=== PATIENT | male | born 1975 | race Caucasian/White ===

== ENCOUNTER → 2020-01-29 | Emergency (ER) | payer MEDICAID, OTHER ==
[~2020-01-29] VITALS: Ht 175.3 cm; Wt 127.0 kg
[~2020-01-29] MED LIST: DOCU100C8 PO; GABA300C10 PO; HYDR-4072 PO; KETOROLAC TROMETH 30 MG/ML 1ML VIAL IV ONE; MORPHINE SULFATE 4 MG/ML SYR/VIAL IV ONE; NAP500T PO; ONDANSETRON HCL 4 MG/2 ML VIAL IV ONE; OXYC325T14 PO; SODIUM CHLORIDE 0.9% 1,000 ML IV ONE; TAM04C PO
[2020-01-29 19:21] LABS: Urine Bacteria NONE SEEN /hpf (None Seen); Urine Blood 3+ /uL (Negative); Urine WBC 1 /hpf (0 - 3)
[2020-01-29 19:22] LABS: Basophils # (auto) 0.1 10 ^3/uL (0-0.2); Basophils % (auto) 0.8 % (0.0-2.0); Eosinophils # (auto) 0.2 10 ^3/uL (0-0.8); Eosinophils % (auto) 2.3 % (0.0-7.0); Hemoglobin 15.8 g/dL (13.5-17.5); Lymphocytes # (auto) 1.8 10 ^3/uL (0.4-5.4); Lymphocytes % (auto) 19.5 % (10.0-50.0); Mean Corpuscular Hemoglobin 27.1 pg (28.0-32.0); Mean Corpuscular Volume 82.2 fL (80.0-100.0); Monocytes # (auto) 0.9 10 ^3/uL (0-1.3); Monocytes % (auto) 10.5 % (0.0-12.0); Neutrophils % (auto) 66.9 % (37.0-80.0); Nucleated Red Blood Cells % 0.1 %; Platelet Count (auto) 316 10^3/uL (140-450); Red Blood Cells 5.85 10^6/uL (4.5-5.90); Red Cell Distribution Width 14.3 % (11.8-14.3)
[2020-01-29 19:36] LABS: Albumin 3.7 g/dL (3.4-5.0); BUN/Creatinine Ratio 15.5; Calcium 8.8 mg/dL (8.5-10.1); Potassium 4.1 mmol/L (3.5-5.1)
[2020-01-29 19:44] LABS: Bilirubin, Total 0.2 mg/dL (0.2-1.0); Total Protein 7.5 g/dL (6.4-8.2)
[2020-01-29 22:00] VITALS: BP 110/69
== END | disposition home or self-care (01) ==
LOC: ER 18:23
DX: N13.2 Hydronephrosis with renal and ureteral calculous obstruction (principal)
CPT/HCPCS: 36415; 74176; 80053; 81001; 85025; 96374; 96375; 99284; J1885; J2270; J2405; J7030

== ENCOUNTER 2020-01-31 09:58 | Emergency (ER) | payer MEDICAID ==
[~2020-01-31] VITALS: Ht 175.3 cm; Wt 122.0 kg
[2020-01-31 10:04] VITALS: BP 132/92
[2020-01-31 10:25] LABS: Basophils # (auto) 0.1 10 ^3/uL (0-0.2); Basophils % (auto) 1.1 % (0.0-2.0); Eosinophils # (auto) 0.2 10 ^3/uL (0-0.8); Eosinophils % (auto) 2.4 % (0.0-7.0); Hematocrit 46.3 % (41.0-53.0); Hemoglobin 15.5 g/dL (13.5-17.5); Lymphocytes # (auto) 1.6 10 ^3/uL (0.4-5.4); Mean Corpuscular Hemoglobin 27.6 pg (28.0-32.0); Mean Corpuscular Hgb Conc. 33.5 g/dL (32.0-36.0); Mean Corpuscular Volume 82.4 fL (80.0-100.0); Monocytes # (auto) 0.8 10 ^3/uL (0-1.3); Monocytes % (auto) 10.8 % (0.0-12.0); Neutrophils # (auto) 4.7 10 ^3/uL (1.6-8.6); Neutrophils % (auto) 63.7 % (37.0-80.0); Nucleated Red Blood Cells % 0.1 %; Platelet Count (auto) 280 10^3/uL (140-450); Red Blood Cells 5.62 10^6/uL (4.5-5.90); White Blood Cell 7.5 10^3/uL (4.4-10.8)
[2020-01-31] MEDS ORDERED: KETOROLAC TROMETH 30 MG/ML 1ML VIAL IV ONE (10:30)
[2020-01-31] MEDS ORDERED: SODIUM CHLORIDE 0.9% 1,000 ML IV ONE (10:30)
[2020-01-31 10:36] LABS: Urine WBC None Seen /hpf (0 - 3)
[2020-01-31 10:43] LABS: Potassium 4.3 mmol/L (3.5-5.1)
[2020-01-31 10:49] LABS: BUN/Creatinine Ratio 17.5; Calcium 8.8 mg/dL (8.5-10.1)
[2020-01-31 11:02] LABS: Urine Bacteria NONE SEEN /hpf (None Seen); Urine Blood 3+ /uL (Negative); Urine Specific Gravity 1.019 (1.001-1.035)
[2020-01-31] MEDS ORDERED: ONDANSETRON HCL 4 MG/2 ML VIAL IV ONE (11:30)
[2020-01-31] MEDS ORDERED: MORPHINE SULFATE 4 MG/ML SYR/VIAL IV ONE (11:30)
== END 2020-01-31 12:06 | disposition home or self-care (01) ==
LOC: ER 09:58
DX: N20.0 Calculus of kidney (principal)
CPT/HCPCS: 36415; 80048; 81001; 85025; 96374; 96375; 99284; J1885; J2270; J2405; J7030

== ENCOUNTER 2020-02-12 17:23 | Inpatient (IN) | payer MEDICAID ==
[~2020-02-12] VITALS: Ht 175.3 cm; Wt 123.7 kg
[2020-02-12 20:24] LABS: Urine WBC None Seen /hpf (0 - 3)
[2020-02-12 20:45] LABS: Urine Bacteria NONE SEEN /hpf (None Seen); Urine Blood 3+ /uL (Negative); Urine Mucus FEW (None Seen); Urine Specific Gravity 1.029 (1.001-1.035)
[2020-02-12] MEDS ORDERED: ONDANSETRON HCL 4 MG/2 ML VIAL IV ONE (22:45)
[2020-02-12] MEDS ORDERED: SODIUM CHLORIDE 0.9% 1,000 ML IV ONE (22:45)
[2020-02-12] MEDS ORDERED: MORPHINE SULFATE 4 MG/ML SYR/VIAL IV ONE (22:45)
[2020-02-13 00:33] LABS: Basophils # (auto) 0.1 10 ^3/uL (0-0.2); Basophils % (auto) 0.7 % (0.0-2.0); Eosinophils # (auto) 0.2 10 ^3/uL (0-0.8); Eosinophils % (auto) 1.6 % (0.0-7.0); Hematocrit 48.4 % (41.0-53.0); Hemoglobin 15.8 g/dL (13.5-17.5); Lymphocytes # (auto) 2.3 10 ^3/uL (0.4-5.4); Lymphocytes % (auto) 20.9 % (10.0-50.0); Mean Corpuscular Hemoglobin 27.3 pg (28.0-32.0); Mean Corpuscular Hgb Conc. 32.7 g/dL (32.0-36.0); Mean Corpuscular Volume 83.5 fL (80.0-100.0); Monocytes % (auto) 9.2 % (0.0-12.0); Neutrophils # (auto) 7.4 10 ^3/uL (1.6-8.6); Neutrophils % (auto) 67.6 % (37.0-80.0); Nucleated Red Blood Cells % 0.1 %; Platelet Count (auto) 358 10^3/uL (140-450); Red Blood Cells 5.79 10^6/uL (4.5-5.90); Red Cell Distribution Width 14.1 % (11.8-14.3); White Blood Cell 10.9 10^3/uL (4.4-10.8)
[2020-02-13 00:48] LABS: BUN/Creatinine Ratio 15.4; Calcium 9.4 mg/dL (8.5-10.1)
[2020-02-13 00:51] LABS: Bilirubin, Total 0.7 mg/dL (0.2-1.0); Total Protein 8.1 g/dL (6.4-8.2)
[2020-02-13] MEDS ORDERED: KETOROLAC TROMETH 30 MG/ML 1ML VIAL IV ONE (01:45)
[2020-02-13] MEDS ORDERED: ONDANSETRON HCL 4 MG/2 ML VIAL IV PRN (02:45)
[2020-02-13] MEDS ORDERED: HYDROcodone-ACET 5/325MG TAB PO PRN (02:45)
[2020-02-13] MEDS ORDERED: TEMAZEPAM 15 MG CAP PO PRN (02:45)
[2020-02-13] MEDS ORDERED: SODIUM CHLORIDE 0.9% 1,000 ML IV SCH (02:45)
[2020-02-13] MEDS ORDERED: cefTRIAXone 1GM/50ML D5W 50 ML IV SCH (03:00)
[2020-02-13 03:45] VITALS: BP 113/67
--- NOTE | 2020-02-13 03:45 | NUR ---
MS admit from ER VALERIATONYA admitted to MS. Patient oriented to MELISA WILLINGHAM RN primary RN, unit, room, bed, and unit policies regarding patient care and visiting hours. Patient weighed by bedscale and encouraged to call if they need something. All questions and concerns addressed, patient verbalized understanding. Note: patient is alert and oriented x 4, follows direction. On room air with even and unlabored respirations. Patient turns independently in bed and ambulates with steady gait. Lagunas is intact and draining to gravity, no kinks noted. Bed is in lowest locked position with side rails up x2 and call light within reach. instructed patient on POC and to call for assistance PRN. Will continue to monitor Q1hr and PRN.
[2020-02-13] MEDS: MORPHINE SULFATE 4 MG/ML SYR/VIAL IV PRN ×3 (04:09→18:37)
[2020-02-13 05:59] VITALS: BP 113/67
--- NOTE | 2020-02-13 07:19 | NUR ---
Closing note patient resting in bed with even and unlabored respirations, no s/s of distress noted. Endorsed care to day shift RN.
--- NOTE | 2020-02-13 07:30 | NUR ---
Opening shift note Assumed care patient currently in bed AOx4. Patient reports no pain at this time. Patient updated on POC and to call for assistance, patient verbalized understanding. Bed in low position, locked, call light within reach. Lagunas catheter hung and secured below waistline draining clear yellow urine. Will continue care.
[2020-02-13 09:00] VITALS: BP 113/68
[2020-02-13] MEDS: SODIUM CHLORIDE 0.9% 1,000 ML IV SCH ×2 (10:45→18:30)
--- NOTE | 2020-02-13 10:50 | NUR ---
Pain Patient complaining of flank pain. Patient states pain is constant and rates 7/10. Will medicate per MD orders and continue to monitor.
[2020-02-13] MEDS: FAMOTIDINE 20 MG TAB PO SCH ×2 (10:53→20:59)
[2020-02-13] MEDS ORDERED: MANNITOL FTV 25% 12.5 GM/50 ML 50 ML IV ONE (11:45)
[2020-02-13 12:31] VITALS: BP 107/78
[2020-02-13 13:53] LABS: Alcohol, Urine < 3.0 mg/dL (0-10); Amphetamine Screen, Urine NEGATIVE (NEGATIVE); Barbiturate Scree,Urine NEGATIVE (NEGATIVE); Benzodiazephine Screen, Urine NEGATIVE (NEGATIVE); Cannabinoid Screen, Urine NEGATIVE (NEGATIVE); Cocaine Screen, Urine POSITIVE (NEGATIVE); Opiate Scree,Urine POSITIVE (NEGATIVE); Phencyclidine Screen, Urine NEGATIVE (NEGATIVE)
[2020-02-13 16:51] VITALS: BP 128/67
[2020-02-13] MEDS: TAMSULOSIN HYDROCHLORIDE 0.4 MG CAP PO SCH (18:07)
[2020-02-13] MEDS: KETOROLAC TROMETH 30 MG/ML 1ML VIAL IV PRN (20:59)
[2020-02-13 23:41] VITALS: BP 122/78
[2020-02-14] MEDS: KETOROLAC TROMETH 30 MG/ML 1ML VIAL IV PRN ×2 (03:52→14:25)
[2020-02-14] MEDS: SODIUM CHLORIDE 0.9% 1,000 ML IV SCH ×3 (03:56→22:28)
[2020-02-14 06:05] VITALS: BP 129/72
[2020-02-14 06:38] LABS: Basophils # (auto) 0 10 ^3/uL (0-0.2); Basophils % (auto) 0.8 % (0.0-2.0); Eosinophils # (auto) 0.2 10 ^3/uL (0-0.8); Eosinophils % (auto) 3.1 % (0.0-7.0); Hematocrit 42.6 % (41.0-53.0); Hemoglobin 14.4 g/dL (13.5-17.5); Lymphocytes # (auto) 1.5 10 ^3/uL (0.4-5.4); Lymphocytes % (auto) 28.3 % (10.0-50.0); Mean Corpuscular Hemoglobin 27.9 pg (28.0-32.0); Mean Corpuscular Hgb Conc. 33.7 g/dL (32.0-36.0); Mean Corpuscular Volume 82.8 fL (80.0-100.0); Monocytes # (auto) 0.6 10 ^3/uL (0-1.3); Neutrophils % (auto) 56.8 % (37.0-80.0); Platelet Count (auto) 283 10^3/uL (140-450); Red Blood Cells 5.15 10^6/uL (4.5-5.90); Red Cell Distribution Width 14.1 % (11.8-14.3); White Blood Cell 5.4 10^3/uL (4.4-10.8)
[2020-02-14 06:57] LABS: Potassium 4.1 mmol/L (3.5-5.1)
[2020-02-14 07:02] LABS: BUN/Creatinine Ratio 14.1; Calcium 8.2 mg/dL (8.5-10.1)
--- NOTE | 2020-02-14 07:30 | NUR ---
Opening Shift Note Assumed care of patient, awake and alert. No S/S of distress/SOB or pain. Instructed on POC and to call for assist PRN, will continue to monitor for changes Q1hr and PRN. Bed is locked and in lowest position. Call light within reach.
[2020-02-14 08:00] VITALS: BP 119/85
[2020-02-14 09:00] VITALS: BP 119/85
[2020-02-14] MEDS: FAMOTIDINE 20 MG TAB PO SCH ×2 (11:42→22:27)
[2020-02-14] MEDS: MORPHINE SULFATE 4 MG/ML SYR/VIAL IV PRN ×2 (11:43→20:34)
[2020-02-14 13:00] VITALS: BP 130/80
--- NOTE | 2020-02-14 14:20 | NUR ---
URINE STRAINED HARKINS BAG EMPTIED WITH URINE OUTPUT OF 1,450 ML. THE URINE WAS PUT THROUGH A STRAINED NO STONES NOTED IN THE STRAINER.WILL CONTINUE TO MONITOR FOR STONES IN URINE.
[2020-02-14 16:37] VITALS: BP 131/84
[2020-02-14] MEDS: TAMSULOSIN HYDROCHLORIDE 0.4 MG CAP PO SCH (18:16)
--- NOTE | 2020-02-14 19:30 | NUR ---
Patient discussed pending lithotripsy on 02/15/20. Patient verbalized concern about his spinal stimulator wires during the procedure if the shockwave can dislodge his wires. Will inform dayshift RN to discuss with Dr. Guerrero. Patient will be NPO at midnight.
--- NOTE | 2020-02-14 19:30 | NUR ---
Opening Shift Note Assumed care of patient, awake and alert. No S/S of distress/SOB or pain. Pt safety measures in place, bed in lowest position, side rails raised x2, call light within reach. Instructed on POC and to call for assist PRN, will continue to monitor for changes Q1hr and PRN.
[2020-02-14 22:00] VITALS: BP 134/86
--- NOTE | 2020-02-14 22:48 | NUR ---
Urine Strained Patient's griffin drained, 1675 mL. Urine clear, unmeasurable spec of sediment found in strainer. Will continue to monitor.
[2020-02-15 05:00] VITALS: BP 144/91
[2020-02-15] MEDS: SODIUM CHLORIDE 0.9% 1,000 ML IV SCH ×3 (07:36→21:56)
[2020-02-15 08:00] VITALS: BP 135/71
[2020-02-15 09:00] VITALS: BP 135/71
[2020-02-15 09:35] LABS: Partial Thromboplastin Time 27.6 sec (23.64-32.05)
[2020-02-15] MEDS: FAMOTIDINE 20 MG TAB PO SCH ×2 (10:00→21:56)
--- NOTE | 2020-02-15 10:00 | NUR ---
URINE STRAINED 1,200 ML OF URINE REMOVED FROM HARKINS BAG AND STRAINED. NO STONES OR SEDIMENTS NOTED. WILL CONTINUE TO MONITOR.
[2020-02-15] MEDS: MORPHINE SULFATE 4 MG/ML SYR/VIAL IV PRN (11:28)
[2020-02-15 13:00] VITALS: BP 125/84
--- NOTE | 2020-02-15 13:10 | NUR ---
OR PATIENT TRANSPORTED TO OR FOR PROCEDURE WITH . PATIENT TRANSPORTED IN BED WITH NO SIGNS OF DISTRESS OR PAIN.
--- NOTE | 2020-02-15 13:10 | NUR ---
URINE STRAINED 650 ML OF URINE REMOVED FROM HARKINS BAG AND STRAINED, NO SEDIMENT OR STONES NOTED. WILL CONTINUE TO MONITOR.
[2020-02-15] MEDS ORDERED: ceFAZolin 1GM/50ML 50 ML IV ONE (13:22)
[2020-02-15] MEDS ORDERED: KETAMINE HCL 10 ML ONE (14:23)
[2020-02-15] MEDS ORDERED: MIDAZOLAM HCL 1MG/1ML-2 ML VIAL ONE (14:23)
[2020-02-15] MEDS ORDERED: PROPOFOL 10 MG/ML 20 ML IV ONE (14:23)
[2020-02-15] MEDS ORDERED: fentaNYL CITRATE 100 MCG/2 ML VL ONE (14:23)
[2020-02-15] MEDS ORDERED: ONDANSETRON HCL 4 MG/2 ML VIAL ONE (14:23)
--- NOTE | 2020-02-15 16:35 | NUR ---
OR REPORT REPORT RECEIVED FROM OR NURSE LONG. DR. CABALLERO DID RIGHT ESWL WITH NO STENT PLACEMENT. MAC ANESTHESIA GIVEN TO PATIENT. PATIENT WILL BE PLACED IN REGULAR DIET. PATIENT STATES HE HAS A HEADACHE BUT WHEN HE REST IT GOES AWAY. VS BP 135/90, O2 98% ON RA, HR 70. PATIENT GIVEN 1 BAG OF LACTATED RINGERS. PATIENT IS IN BED RESTING WITH NO SIGNS OF DISTRESS.
[2020-02-15] MEDS: TAMSULOSIN HYDROCHLORIDE 0.4 MG CAP PO SCH (18:05)
[2020-02-15] MEDS: ACETAMINOPHEN 325 MG TAB PO PRN (18:30)
--- NOTE | 2020-02-15 18:46 | NUR ---
URINE STRAINED REMOVED 1,000 ML OF URINE FROM HARKINS AND STRAINED. MINIMAL AMOUNT OF SEDIMENT NOTED ON STRAINER BUT NOT ENOUGH TO COLLECT. WILL CONTINUE TO MONITOR URINE OUTPUT FOR STONES.
--- NOTE | 2020-02-15 19:46 | NUR ---
open note assumed care of pt. upon entering room pt awake, alert and oriented x4. pt on room air no distress noted or observed. pt updated on plan of care. pt has griffin in place, secured, below the waist and draining clear yellow. pt bed locked, low and 2x rails up. call light in reach, this nurse to round q1hr and prn. pt encouraged to call as needed.
[2020-02-15] MEDS: KETOROLAC TROMETH 30 MG/ML 1ML VIAL IV PRN (21:56)
[2020-02-15 22:00] VITALS: BP 128/72
--- NOTE | 2020-02-16 00:45 | NUR ---
griffin drained and strained no stones or sediment visualized.
[2020-02-16] MEDS: ACETAMINOPHEN 325 MG TAB PO PRN (02:12)
[2020-02-16 05:00] VITALS: BP 120/81
[2020-02-16] MEDS: SODIUM CHLORIDE 0.9% 1,000 ML IV SCH (05:42)
--- NOTE | 2020-02-16 06:02 | NUR ---
no sediment noted in strained griffin bag contents
--- NOTE | 2020-02-16 07:20 | NUR ---
Opening Note Assumed pt care from NOC RN. Pt is a/ox4 with no s/s of distress or SOB. Pt is currently sitting upright in bed with mild c/o flank pain, 5/. Discussed pain management with pt; pt verbalized understanding. Discussed POC with pt; pt verbalized understanding. Safety measures maintained with call light within reach, bed in lowest position and side rails up. Will continue to monitor.
[2020-02-16] MEDS: FAMOTIDINE 20 MG TAB PO SCH (08:28)
[2020-02-16] MEDS: KETOROLAC TROMETH 30 MG/ML 1ML VIAL IV PRN (08:28)
[2020-02-16 08:51] VITALS: BP 130/75
--- NOTE | 2020-02-16 10:30 | NUR ---
Griffin Catheter Removed Per 's Orders Griffin catheter was removed. Pt tolerated removal well. Mild sediment present in griffin bag after straining. Pt provided urinal. Will continue to monitor and monitor voiding needs. Addendum: 02/16/20 at 1136 by RAYMOND ADORNO RN RN Pt has since voided. Will continue to monitor.
--- NOTE | 2020-02-16 11:35 | NUR ---
Stone Passed Pt has passed stone. No adverse signs noted. Will notify .
[2020-02-16] MEDS ORDERED: TAM04C PO (11:42)
[2020-02-16 11:54] VITALS: BP 130/75
--- NOTE | 2020-02-16 12:23 | NUR ---
IV D/C'ed Iv to pt's R hand d/c'ed. Catheter was removed fully intact. Site is asymptomatic. Pressure was applied to site for 3 minutes with gauze and then wrapped in coban. Pt instructed to keep dressing on for 30 minutes; pt verbalized understanding.
--- NOTE | 2020-02-16 12:35 | NUR ---
Pt D/C'ed off Unit Pt ambulated off unit. Pt is a/ox4 with no s/s of distress or SOB. Pt provided all education material, aware of all follow up appointments, aware of prescriptions, and all questions were answered. IV was d/c'ed prior to d/c.
[2020-02-16 13:00] VITALS: BP 130/88
== END 2020-02-16 12:41 | disposition home or self-care (01) | DRG 465 ==
LOC: ER 17:23 → OVERFLOW 17:24 → WEST WING 02-13 03:24
PROVIDERS: ADMIT Nurse Practitioner; ATTEND Internal Medicine
PROC: 0T9B70Z Drainage of Bladder with Drainage Device, Via Natural or Artificial Opening (ICD-10-PCS; principal; 2020-02-13)
PROC: 0TF6XZZ Fragmentation in Right Ureter, External Approach (ICD-10-PCS; 2020-02-15)
DX: N13.2 Hydronephrosis with renal and ureteral calculous obstruction (principal); E66.01 Morbid (severe) obesity due to excess calories; G47.30 Sleep apnea, unspecified; F10.10 Alcohol abuse, uncomplicated; R33.9 Retention of urine, unspecified; N13.9 Obstructive and reflux uropathy, unspecified; Z87.442 Personal history of urinary calculi; Z68.41 Body mass index [BMI] 40.0-44.9, adult; F14.10 Cocaine abuse, uncomplicated; Y90.9 Presence of alcohol in blood, level not specified
CPT/HCPCS: 36415; 74176; 80048; 80053; 80307; 81001; 85025; 85610; 85730; 96365; 96367; 96375; G0378; J0690; J0696; J1885; J2250; J2405; J2704

== ENCOUNTER 2020-04-24 15:05 | Inpatient (IN) | payer MEDICAID ==
[~2020-04-24] VITALS: Ht 175.3 cm; Wt 127.2 kg
[~2020-04-24 15:05] MED LIST changes: -DOCU100C8 PO; -GABA300C10 PO; -HYDR-4072 PO; -KETOROLAC TROMETH 30 MG/ML 1ML VIAL IV ONE; -MORPHINE SULFATE 4 MG/ML SYR/VIAL IV ONE; -NAP500T PO; -ONDANSETRON HCL 4 MG/2 ML VIAL IV ONE; -OXYC325T14 PO; -SODIUM CHLORIDE 0.9% 1,000 ML IV ONE
[2020-04-24] MEDS ORDERED: ASPirin 81 mg TAB PO ONE ×2 (15:30→15:45)
[2020-04-24] MEDS ORDERED: MORPHINE SULF INJ 2 MG/ML SYRINGE 1ML IV ONE (15:30)
[2020-04-24] MEDS ORDERED: ONDANSETRON HCL 4 MG/2 ML VIAL IV ONE (15:30)
[2020-04-24 15:37] LABS: Basophils # (auto) 0.1 10 ^3/uL (0-0.2); Eosinophils # (auto) 0.1 10 ^3/uL (0-0.8); Eosinophils % (auto) 1.1 % (0.0-7.0); Hemoglobin 15.6 g/dL (13.5-17.5); Lymphocytes # (auto) 2.9 10 ^3/uL (0.4-5.4); Lymphocytes % (auto) 24.6 % (10.0-50.0); Mean Corpuscular Hemoglobin 27.6 pg (28.0-32.0); Mean Corpuscular Hgb Conc. 33.1 g/dL (32.0-36.0); Mean Corpuscular Volume 83.3 fL (80.0-100.0); Monocytes # (auto) 1.3 10 ^3/uL (0-1.3); Neutrophils # (auto) 7.3 10 ^3/uL (1.6-8.6); Neutrophils % (auto) 62.3 % (37.0-80.0); Nucleated Red Blood Cells % 0.1 %; Platelet Count (auto) 324 10^3/uL (140-450); Red Blood Cells 5.64 10^6/uL (4.5-5.90); Red Cell Distribution Width 14.7 % (11.8-14.3); White Blood Cell 11.7 10^3/uL (4.4-10.8)
[2020-04-24] MEDS ORDERED: SODIUM CHLORIDE 0.9% 1,000 ML IVB ONE (16:40)
[2020-04-24] MEDS ORDERED: PANTOPRAZOLE 40 MG/10 ML VIAL INJ IV ONE (16:45)
[2020-04-24 16:48] LABS: Alkaline Phosphatase 93 U/L (45-117); Anion Gap 8 (5-15); Aspartate Aminotransferase 22 U/L (15-37); BUN/Creatinine Ratio 12.6; Blood Urea Nitrogen 13 mg/dL (7-18); Carbon Dioxide 25 mmol/L (21-32); Chloride 107 mmol/L (98-107); GFR African American 102 mL/min; GFR Non-African American 84 mL/min; Glucose 93 mg/dL (74-106); Potassium 3.6 mmol/L (3.5-5.1); Sodium 140 mmol/L (136-145)
[2020-04-24 16:49] LABS: Alanine Aminotransferase 52 U/L (16-61); Albumin 3.9 g/dL (3.4-5.0); Bilirubin, Total 0.4 mg/dL (0.2-1.0); Calcium 9.1 mg/dL (8.5-10.1); Magnesium 2.2 mg/dL (1.6-2.6); Total Protein 7.8 g/dL (6.4-8.2)
[2020-04-24 17:54] LABS: INR 0.93 (0.9-1.15); Partial Thromboplastin Time 26.2 sec (23.0-31.2)
[2020-04-24] MEDS ORDERED: ONDANSETRON HCL 4 MG/2 ML VIAL IV PRN (19:45)
[2020-04-24] MEDS ORDERED: LABETALOL HCL 5 MG/ML 4ML SYRINGE IV PRN (19:45)
[2020-04-24] MEDS ORDERED: NITROGLYCERIN 0.4 MG SL TAB SL PRN (19:45)
[2020-04-24] MEDS ORDERED: ACETAMINOPHEN 500 MG TAB PO PRN (19:45)
[2020-04-24] MEDS: HYDROmorphone HCL 2 MG/ML VL IV PRN (20:32)
[2020-04-24 22:16] VITALS: BP 138/90
[2020-04-24] MEDS ORDERED: HYDR-4072 PO (22:45)
[2020-04-24] MEDS ORDERED: NAP500T PO (22:45)
[2020-04-24] MEDS ORDERED: GABA300C10 PO (22:45)
[2020-04-24] MEDS ORDERED: DOCU100C8 PO (22:45)
[2020-04-24] MEDS ORDERED: OXYC325T14 PO (22:45)
--- NOTE | 2020-04-24 23:30 | NUR ---
PT C/O CHEST PAIN 1-10 AN 8. PT MEDICATED WITH NITRO X 1 BECAUSE PT STATES HE DOESNT WANT ANYMORE NITRO.TWELVE LEAD EKG REGISTERED OTHERWISE NORMAL EKG WITH R wave progression and CONDUCTION DELAY.;HEART RATE 96. PT WANTS DILAUDID;PT DOES NOT WANT MORPHINE. PT HAS DILAUDID ALREADY ORDERED. NEXT DOSE DUE 0030.WILL CONTINUE TO MONITOR.
[2020-04-25] MEDS: HYDROmorphone HCL 2 MG/ML VL IV PRN (00:23)
[2020-04-25 05:00] VITALS: BP 128/80
[2020-04-25 06:24] LABS: Chloride 107 mmol/L (98-107); Potassium 3.9 mmol/L (3.5-5.1); Sodium 140 mmol/L (136-145)
[2020-04-25 06:28] LABS: Basophils # (auto) 0 10 ^3/uL (0-0.2); Basophils % (auto) 0.5 % (0.0-2.0); Eosinophils # (auto) 0.2 10 ^3/uL (0-0.8); Eosinophils % (auto) 2.5 % (0.0-7.0); Hematocrit 42.1 % (41.0-53.0); Hemoglobin 14.4 g/dL (13.5-17.5); Lymphocytes # (auto) 1.3 10 ^3/uL (0.4-5.4); Lymphocytes % (auto) 14.2 % (10.0-50.0); Mean Corpuscular Hemoglobin 28.3 pg (28.0-32.0); Mean Corpuscular Hgb Conc. 34.1 g/dL (32.0-36.0); Mean Corpuscular Volume 82.9 fL (80.0-100.0); Monocytes # (auto) 1.1 10 ^3/uL (0-1.3); Monocytes % (auto) 11.7 % (0.0-12.0); Neutrophils # (auto) 6.6 10 ^3/uL (1.6-8.6); Neutrophils % (auto) 71.1 % (37.0-80.0); Platelet Count (auto) 292 10^3/uL (140-450); Red Blood Cells 5.07 10^6/uL (4.5-5.90); Red Cell Distribution Width 14.7 % (11.8-14.3); White Blood Cell 9.2 10^3/uL (4.4-10.8)
[2020-04-25 06:34] LABS: Alkaline Phosphatase 84 U/L (45-117); Anion Gap 3 (5-15); BUN/Creatinine Ratio 13.6; Blood Urea Nitrogen 14 mg/dL (7-18); Carbon Dioxide 30 mmol/L (21-32); GFR African American 102 mL/min; GFR Non-African American 84 mL/min; Glucose 101 mg/dL (74-106)
[2020-04-25 06:35] LABS: Alanine Aminotransferase 39 U/L (16-61); Albumin 3.3 g/dL (3.4-5.0); Aspartate Aminotransferase 12 U/L (15-37); Bilirubin, Total 0.5 mg/dL (0.2-1.0); Calcium 8.4 mg/dL (8.5-10.1); Cholesterol 149 mg/dL (< 200); HDL Cholesterol 43 mg/dL (40-59); LDL Cholesterol 84 mg/dL (< 100); Magnesium 2.3 mg/dL (1.6-2.6); Total Protein 6.6 g/dL (6.4-8.2); Triglycerides 223 mg/dL (< 150)
--- NOTE | 2020-04-25 07:30 | NUR ---
Opening Shift Note Assumed care of patient, awake and alert. No S/S of distress/SOB or pain. Bed is low, locked with 2x side rails up. Call light within reach. Instructed on POC and to call for assist PRN, will continue to monitor for changes Q1hr and PRN.
[2020-04-25] MEDS ORDERED: ADENOSINE 107 MG in GIVE UN-DILUTED 0 ML IV STA (08:10)
[2020-04-25] MEDS ORDERED: MORPHINE SULFATE 4 MG/ML SYR/VIAL IV PRN (08:15)
[2020-04-25] MEDS: ENOXAPARIN SOD 40 MG/0.4 ML SYRINGE SC SCH (08:57)
[2020-04-25] MEDS: PANTOPRAZOLE 40 MG/10 ML VIAL INJ IV SCH (08:57)
[2020-04-25 09:02] VITALS: BP 133/93
[2020-04-25 12:05] LABS: Alcohol, Urine < 3.0 mg/dL (0-10); Amphetamine Screen, Urine NEGATIVE (NEGATIVE); Barbiturate Scree,Urine NEGATIVE (NEGATIVE); Benzodiazephine Screen, Urine NEGATIVE (NEGATIVE); Cannabinoid Screen, Urine NEGATIVE (NEGATIVE); Cocaine Screen, Urine POSITIVE (NEGATIVE); Opiate Scree,Urine NEGATIVE (NEGATIVE); Phencyclidine Screen, Urine NEGATIVE (NEGATIVE)
[2020-04-25 12:07] LABS: Urine Bacteria FEW /hpf (None Seen); Urine Blood Negative /uL (Negative); Urine Specific Gravity 1.016 (1.001-1.035); Urine WBC <1 /hpf (0 - 3)
[2020-04-25 13:04] VITALS: BP 155/79
[2020-04-25] MEDS ORDERED: HYDROcodone-ACET 5/325MG TAB PO PRN (13:15)
[2020-04-25] MEDS ORDERED: MORPHINE SULF INJ 2 MG/ML SYRINGE 1ML IV PRN (13:30)
[2020-04-25] MEDS ORDERED: DOCUSATE SOD 100 MG CAP PO PRN (13:30)
[2020-04-25] MEDS ORDERED: levoFLOXacin 750MG 150 ML IV ONE (13:30)
[2020-04-25] MEDS: HYDROcodone-ACET 5/325MG TAB PO PRN ×2 (14:52→20:56)
[2020-04-25 16:46] VITALS: BP 131/84
[2020-04-25] MEDS ORDERED: TAMSULOSIN HYDROCHLORIDE 0.4 MG CAP PO SCH (18:00)
[2020-04-25 21:57] VITALS: BP 131/86
[2020-04-25] MEDS ORDERED: ATORVASTATIN 20 MG TAB PO SCH (22:00)
[2020-04-26] MEDS: HYDROcodone-ACET 5/325MG TAB PO PRN ×2 (04:19→10:07)
[2020-04-26 05:00] VITALS: BP 110/70
--- NOTE | 2020-04-26 07:30 | NUR ---
Opening Shift Note Assumed care of patient, resting with eyes closed. Respirations are even and unlabored. No S/S of distress/SOB. Bed is low, locked with 2x side rails up. Call light within reach. Will discuss POC with patient. W ill continue to monitor for changes Q1hr and PRN.
[2020-04-26 09:00] VITALS: BP 113/78
[2020-04-26] MEDS ORDERED: levoFLOXacin 750MG 150 ML IV SCH (10:00)
[2020-04-26] MEDS: PANTOPRAZOLE 40 MG/10 ML VIAL INJ IV SCH (10:07)
[2020-04-26] MEDS: ENOXAPARIN SOD 40 MG/0.4 ML SYRINGE SC SCH (10:07)
--- NOTE | 2020-04-26 10:15 | NUR ---
Dr. Luna at bedside Discussing POC with patient. New orders received to advance diet. Orders read back to verify. Patient may be discharged if echocardiogram result is unremarkable. Will continue to monitor Q1hr and PRN.
--- NOTE | 2020-04-26 11:21 | NUR ---
Cardiology clearance Spoke with Liban Boss, she is aware of echocardiogram report. Patient cleared for discharge from cardiology standpoint.
[2020-04-26] MEDS ORDERED: LEVO750T8 PO (12:39)
[2020-04-26 13:00] VITALS: BP 115/74
== END 2020-04-26 15:33 | disposition home or self-care (01) | DRG 816 ==
LOC: ER 15:05 → TELE 15:06 → TELE-WESTW 21:55
PROVIDERS: ADMIT Family Medicine; ATTEND Internal Medicine
DX: T40.5X1A Poisoning by cocaine, accidental (unintentional), initial encounter (principal); J18.9 Pneumonia, unspecified organism; R65.10 Systemic inflammatory response syndrome (SIRS) of non-infectious origin without acute organ dysfunction; F14.10 Cocaine abuse, uncomplicated; E03.9 Hypothyroidism, unspecified; F12.929 Cannabis use, unspecified with intoxication, unspecified; M25.552 Pain in left hip; N40.0 Benign prostatic hyperplasia without lower urinary tract symptoms; E66.01 Morbid (severe) obesity due to excess calories; Z68.41 Body mass index [BMI] 40.0-44.9, adult; E78.1 Pure hyperglyceridemia; I10 Essential (primary) hypertension; Z87.442 Personal history of urinary calculi; G89.21 Chronic pain due to trauma; Z82.49 Family history of ischemic heart disease and other diseases of the circulatory system; Z68.42 Body mass index [BMI] 45.0-49.9, adult; Z71.3 Dietary counseling and surveillance
CPT/HCPCS: 36415; 71045; 71111; 71250; 80053; 80061; 80307; 80320; 81001; 83036; 83605; 83735; 83880; 84436; 84443; 84484; 85025; 85379; 85610; 85730; 87040; 93005; 93306; C9113; G0378; J0153; J1956; J2405

== ENCOUNTER 2021-04-15 13:15 | Emergency (ER) | payer MEDICAID ==
[~2021-04-15] VITALS: Ht 175.3 cm; Wt 131.5 kg
[~2021-04-15 13:15] MED LIST changes: +DOCU100C10 PO; +GABA300C10 PO; +HYDR-4072 PO; +LEVO750T8 PO; +NAP500T PO; +OXYC325T14 PO
[2021-04-15 13:43] VITALS: BP 138/97
[2021-04-15] MEDS ORDERED: ONDANSETRON ODT 4 MG TAB PO ONE (15:15)
[2021-04-15] MEDS ORDERED: HYDROcodone-ACET 10/325MG TAB PO ONE (15:15)
== END 2021-04-15 15:36 | disposition home or self-care (01) ==
LOC: ER 13:15
DX: S46.911A Strain of unspecified muscle, fascia and tendon at shoulder and upper arm level, right arm, initial encounter (principal); S39.012A Strain of muscle, fascia and tendon of lower back, initial encounter; I10 Essential (primary) hypertension; E78.5 Hyperlipidemia, unspecified; G89.29 Other chronic pain; M54.5 Low back pain; Z79.2 Long term (current) use of antibiotics; Z79.899 Other long term (current) drug therapy; X50.1XXA Overexertion from prolonged static or awkward postures, initial encounter; Y93.89 Activity, other specified; Y92.89 Other specified places as the place of occurrence of the external cause; Y99.8 Other external cause status
CPT/HCPCS: 72131; 73030; 99284; Q0162

== ENCOUNTER 2021-11-12 20:46 | Emergency (ER) | payer MEDICAID ==
[~2021-11-12] VITALS: Ht 175.3 cm; Wt 138.3 kg
[2021-11-12] MEDS ORDERED: KETOROLAC TROMETH 60MG/2ML VIAL IM ONE (21:30)
[2021-11-12 22:23] LABS: Basophils # (auto) 0.1 10 ^3/uL (0-0.2); Basophils % (auto) 0.9 % (0.0-2.0); Eosinophils # (auto) 0.2 10 ^3/uL (0-0.8); Eosinophils % (auto) 1.6 % (0.0-7.0); Hematocrit 45.3 % (41.0-53.0); Hemoglobin 15.7 g/dL (13.5-17.5); Lymphocytes # (auto) 1.5 10 ^3/uL (0.4-5.4); Lymphocytes % (auto) 16.6 % (10.0-50.0); Mean Corpuscular Hemoglobin 28.5 pg (28.0-32.0); Mean Corpuscular Hgb Conc. 34.7 g/dL (32.0-36.0); Mean Corpuscular Volume 82.1 fL (80.0-100.0); Monocytes # (auto) 0.9 10 ^3/uL (0-1.3); Monocytes % (auto) 9.2 % (0.0-12.0); Neutrophils # (auto) 6.7 10 ^3/uL (1.6-8.6); Neutrophils % (auto) 71.7 % (37.0-80.0); Red Blood Cells 5.52 10^6/uL (4.5-5.90); Red Cell Distribution Width 13.7 % (11.8-14.3); White Blood Cell 9.3 10^3/uL (4.4-10.8)
[2021-11-12 22:40] LABS: Albumin 3.5 g/dL (3.4-5.0); Calcium 8.9 mg/dL (8.5-10.1); Magnesium 2.1 mg/dL (1.6-2.6); Potassium 3.9 mmol/L (3.5-5.1)
[2021-11-12 22:44] LABS: BUN/Creatinine Ratio 8.8; Bilirubin, Total 0.3 mg/dL (0.2-1.0); Total Protein 7.6 g/dL (6.4-8.2)
[2021-11-12 23:31] VITALS: BP 137/71
== END 2021-11-12 23:37 | disposition home or self-care (01) ==
LOC: ER 20:46
DX: R07.89 Other chest pain (principal); I10 Essential (primary) hypertension; E78.5 Hyperlipidemia, unspecified; Z87.442 Personal history of urinary calculi
CPT/HCPCS: 36415; 71046; 80053; 83735; 83880; 84484; 85025; 93005; 96372; 99285; J1885

== ENCOUNTER 2022-10-05 15:26 | Emergency (ER) | payer MEDICAID ==
[~2022-10-05] VITALS: Ht 175.3 cm; Wt 150.0 kg
[2022-10-05 15:57] VITALS: BP 147/88
[2022-10-05] MEDS ORDERED: ASPirin 81 mg TAB PO ONE (16:00)
[2022-10-05 16:38] LABS: Basophils # (auto) 0.1 10 ^3/uL (0-0.2); Basophils % (auto) 1.2 % (0.0-2.0); Eosinophils # (auto) 0.3 10 ^3/uL (0-0.8); Eosinophils % (auto) 4.6 % (0.0-7.0); Hematocrit 45.6 % (41.0-53.0); Hemoglobin 15.5 g/dL (13.5-17.5); Lymphocytes # (auto) 1.9 10 ^3/uL (0.4-5.4); Lymphocytes % (auto) 28.9 % (10.0-50.0); Mean Corpuscular Hemoglobin 27.8 pg (28.0-32.0); Mean Corpuscular Volume 81.8 fL (80.0-100.0); Monocytes % (auto) 15.1 % (0.0-12.0); Neutrophils # (auto) 3.4 10 ^3/uL (1.6-8.6); Neutrophils % (auto) 50.2 % (37.0-80.0); Nucleated Red Blood Cells % 0.2 %; Red Blood Cells 5.58 10^6/uL (4.5-5.90); Red Cell Distribution Width 13.9 % (11.8-14.3); White Blood Cell 6.7 10^3/uL (4.4-10.8)
[2022-10-05 16:45] LABS: Albumin 3.8 g/dL (3.4-5.0); BUN/Creatinine Ratio 13.6; Bilirubin, Total 0.3 mg/dL (0.2-1.0); Calcium 8.6 mg/dL (8.5-10.1); Magnesium 2.2 mg/dL (1.6-2.6); Potassium 4.2 mmol/L (3.5-5.1)
[2022-10-05] MEDS ORDERED: METH4PAK PO (19:58)
[2022-10-05] MEDS ORDERED: AZIT1POW PO (19:58)
== END 2022-10-05 22:17 | disposition home or self-care (01) ==
LOC: ER 15:26
DX: J20.9 Acute bronchitis, unspecified (principal); R07.89 Other chest pain; F41.9 Anxiety disorder, unspecified; I25.10 Atherosclerotic heart disease of native coronary artery without angina pectoris; E78.5 Hyperlipidemia, unspecified; I10 Essential (primary) hypertension; Z87.442 Personal history of urinary calculi
CPT/HCPCS: 36415; 71046; 80053; 83735; 83880; 84484; 85025; 93005

== ENCOUNTER 2022-12-08 15:18 | Emergency (ER) | payer MEDICAID ==
[~2022-12-08] VITALS: Ht 175.3 cm; Wt 145.0 kg
[~2022-12-08 15:18] MED LIST changes: +AZIT1POW PO; +METH4PAK PO
[2022-12-08 15:39] LABS: Basophils # (auto) 0.1 10 ^3/uL (0-0.2); Basophils % (auto) 0.9 % (0.0-2.0); Eosinophils # (auto) 0.1 10 ^3/uL (0-0.8); Eosinophils % (auto) 1.3 % (0.0-7.0); Hematocrit 47.2 % (41.0-53.0); Hemoglobin 15.9 g/dL (13.5-17.5); Lymphocytes # (auto) 1.9 10 ^3/uL (0.4-5.4); Lymphocytes % (auto) 19.5 % (10.0-50.0); Mean Corpuscular Hemoglobin 27.4 pg (28.0-32.0); Mean Corpuscular Hgb Conc. 33.7 g/dL (32.0-36.0); Mean Corpuscular Volume 81.1 fL (80.0-100.0); Monocytes # (auto) 0.9 10 ^3/uL (0-1.3); Monocytes % (auto) 9.4 % (0.0-12.0); Neutrophils # (auto) 6.8 10 ^3/uL (1.6-8.6); Neutrophils % (auto) 68.9 % (37.0-80.0); Nucleated Red Blood Cells % 0.4 %; Red Blood Cells 5.82 10^6/uL (4.5-5.90); Red Cell Distribution Width 14.2 % (11.8-14.3); White Blood Cell 9.9 10^3/uL (4.4-10.8)
[2022-12-08 16:14] LABS: Albumin 3.7 g/dL (3.4-5.0); Calcium 9.6 mg/dL (8.5-10.1); Potassium 4.1 mmol/L (3.5-5.1)
[2022-12-08 16:19] LABS: BUN/Creatinine Ratio 14.3 (10.0-20.0); Bilirubin, Total 0.3 mg/dL (0.2-1.0); Total Protein 7.1 g/dL (6.4-8.2)
[2022-12-08 17:20] VITALS: BP 114/79
[2022-12-08 17:58] LABS: Alcohol, Urine < 3.0 mg/dL (0-10); Amphetamine Screen, Urine NEGATIVE (NEGATIVE); Barbiturate Scree,Urine NEGATIVE (NEGATIVE); Benzodiazephine Screen, Urine POSITIVE (NEGATIVE); Cannabinoid Screen, Urine POSITIVE (NEGATIVE); Cocaine Screen, Urine NEGATIVE (NEGATIVE); Opiate Scree,Urine NEGATIVE (NEGATIVE); Phencyclidine Screen, Urine NEGATIVE (NEGATIVE)
[2022-12-08 18:20] LABS: Urine Bacteria NONE SEEN /hpf (None Seen); Urine Blood Negative /uL (Negative); Urine WBC 25 /hpf (0 - 3)
== END 2022-12-08 17:25 | disposition home or self-care (01) ==
LOC: ER 15:18
DX: R07.89 Other chest pain (principal); R06.02 Shortness of breath; R05.9 Cough, unspecified; F12.10 Cannabis abuse, uncomplicated; F41.9 Anxiety disorder, unspecified; I25.10 Atherosclerotic heart disease of native coronary artery without angina pectoris; E78.5 Hyperlipidemia, unspecified; I10 Essential (primary) hypertension; I25.2 Old myocardial infarction; Z87.442 Personal history of urinary calculi
CPT/HCPCS: 36415; 71045; 80053; 80307; 81001; 84484; 85025; 93005

== ENCOUNTER 2025-01-15 16:23 | Emergency (ER) | payer MEDICAID ==
[~2025-01-15] VITALS: Ht 175.3 cm; Wt 151.5 kg
[~2025-01-15 16:23] MED LIST changes: +DOCU-265 PO; -DOCU100C10 PO; +GABA-1250 PO; -GABA300C10 PO; -TAM04C PO; +TAMS-35 PO
[2025-01-15 16:33] VITALS: TEMP 98.1
--- NOTE | 2025-01-15 16:41 | ED.PDOC ---
SOB-HPI HPI Comments HPI: Poor Historian. 49-year-old male presents to emergency depart for four week history of productive cough with shortness of breath that is progressively getting worse in the last three days. Patient has been diagnosed with pneumonia and has 3 L nasal cannula as needed home oxygen. Patient is states that the cough is worse when he lays flat. Past Medical History: Oxygen dependent, pneumonia, Past Surgical History: Past Medical history: HTN, HLD, [place], CAD, anxiety, Past Surgical history: unknown Medications: denies Allergies: denies Social History: denies ETOH, denies tobacco use, denies drug use REVIEW OF SYSTEMS: CONSTITUTIONAL: Denies acute: fever, diaphoresis, chills, HEAD: Denies acute: headache, photophobia Eyes: Denies acute: Double vision, vision loss, eye pain, eye discharge. EARS: Denies acute: tinnitus, hearing loss, ear discharge, ear pain, THROAT: Denies acute: sore throat, swelling, difficulty swallowing , pain with swallowing, change in voice. NECK: Denies acute: neck pain, neck swelling, stiff neck. HEART: Denies acute : chest pain, palpitations, LUNGS: Denies acute: wheezing, hemoptysis ABDOMEN: Denies acute: abdominal pain, Nausea, Vomiting, diarrhea, melena , hematemesis, hematochezia SKIN: Denies acute: rash, redness, lesions, itchiness. EXTREMITIES: Denies acute: calf pain, numbness, tingling, weakness, denies pain in extremity. Denies acute: Low back pain. Neuro: Denies acute: focal neurological deficit, motor or sensory focal neurological deficit, tremors, seizure like activity, confusion, dizziness, change in mental status, loss of bowel or bladder function, cauda equina like symptoms. : Denies acute: dysuria, hematuria, flank pain, increase in urinary frequency. PSYCH: Denies acute: hallucination, suicidal ideation, homicidal ideation. PHYSICAL EXAM: General: ----[id number]----acute distress, awake and alert. Head: normocephalic, atraumatic. Neck: supple, trachea is midline, no swelling. Throat: Normal phonation. Eyes:, no erythema, no purulent discharge, no proptosis, no icterus. Heart: regular tachycardic, no significant murmur appreciated. Lungs: no apparent respiratory distress, Able to speak in full sentences. No wheezing, no rhonchi, no crackles. No stridors Clear to auscultation bilaterally. Abdomen: non tender to palpation, non distended, soft, no guarding, no rebound, + bowel sounds. Morbidly obese. Neuro: Awake, Alert, oriented to name, self, situation, follows commands GCS=15. Speech is normal. Skin: no petechia, no purpura, no cyanosis, non-pale, not jaundice. Lower extremities: --no - Pitting edema no deformity, no focal swelling, no calf TTP. Makes eye contact. moves all four extremities. Face: no apparent facial droop. Ambulating in the ED independently. ED COURSE: DISCLAIMER: This medical document was created using an electronic medical record system with voice recognition software and computerized dictation system. Although this document has been carefully reviewed, there might still be some phonetic and typographical errors. Occasional wrong-word or "sound-alike" substitutions may have occurred due to the inherent limitations of voice recognition software. These areas are purely typographical due to imperfections of the software [employer] and do not reflect any compromise in the patient's medical care. Please read the chart carefully and recognize, using context, where these substitutions have occurred. Time Seen by MD: 16:36 Primary Care Provider: NONE Reviewed notes: Medications, Allergies Information Source: Patient Mode of Arrival: Ambulatory Past Medical History PAST MEDICAL HISTORY: Anxiety, CAD, High Lipids, HTN, Kidney Stones, [place] Family History Family History: No family hx of Cancer, No family hx of DM, No family hx of Heart naa Social History Smoker: Non-Smoker Alcohol: Occasionally Drugs: Marijuana Lives In: Home Was a procedure done? Was a procedure done?: No Differential Dx Differential Diagnosis: Bronchitis, URI, Other (DDx include ACS, unstable angina, anxiety, PE, pneumothroax, neoplasm, cardiac ischemia, COPD, asthma, CHF, pleural effusion, tobacco abuse, pneumonia, hypoxia, hypercapnia, anemia., infection/sepsis., pulmonary edema. Asthma, Cardiac tamponade, infection.) X-Ray, Labs, Meds, VS Vital Signs Date Time Temp Pulse Resp B/P (MAP) Pulse Ox O2 Delivery O2 Flow Rate FiO2 01/15/25 20:14 98 18 124/90 (101) 94 01/15/25 20:14 98 20 94 Room Air 01/15/25 19:13 18 96 Room Air* 0 21 01/15/25 16:54 94 01/15/25 16:33 98.1 115 18 117/86 (96) 95 98.1 01/15/25 16:33 18 95 Room Air* 0 21 Lab Test 01/15/25 18:55 01/15/25 17:54 01/15/25 17:00 01/15/25 16:50 Range/Units Lactic Acid Level 1.8 2.3 *H 0.4-2.0 mmol/L Troponin I High Sensitivity < 3 L < 3 L < 3 L </=54 ng/L Influenza Type A Antigen Negative Negative Influenza Type B Antigen Negative Negative SARS-CoV-2 Antigen (Rapid) Negative NEGATIVE White Blood Count 8.4 4.4-10.8 10^3/uL Red Blood Count 6.18 H 4.5-5.90 10^6/uL Hemoglobin 17.4 13.5-17.5 g/dL Hematocrit 50.6 41.0-53.0 % Mean Corpuscular Volume 81.9 80.0-100.0 fL Mean Corpuscular Hemoglobin 28.3 28.0-32.0 pg Mean Corpuscular Hemoglobin Concent 34.5 32.0-36.0 g/dL Red Cell Distribution Width 14.4 H 11.8-14.3 % Platelet Count 288 140-450 10^3/uL Mean Platelet Volume 7.5 6.9-10.8 fL Neutrophils (%) (Auto) 58.2 37.0-80.0 % Lymphocytes (%) (Auto) 28.0 10.0-50.0 % Monocytes (%) (Auto) 11.3 0.0-12.0 % Eosinophils (%) (Auto) 1.7 0.0-7.0 % Basophils (%) (Auto) 0.8 0.0-2.0 % Neutrophils # (Auto) 4.9 1.6-8.6 10 ^3/uL Lymphocytes # (Auto) 2.3 0.4-5.4 10 ^3/uL Monocytes # (Auto) 0.9 0-1.3 10 ^3/uL Eosinophils # (Auto) 0.1 0-0.8 10 ^3/uL Basophils # (Auto) 0.1 0-0.2 10 ^3/uL Nucleated Red Blood Cells 0.2 % Sodium Level 137 136-145 mmol/L Potassium Level 4.4 3.5-5.1 mmol/L Chloride Level 102 98-107 mmol/L Carbon Dioxide Level 24 20-31 mmol/L Anion Gap 11 5-15 Blood Urea Nitrogen 15 9-23 mg/dL Creatinine 1.11 0.700-1.30 mg/dL Glomerular Filtration Rate Calc 82 >90 mL/min BUN/Creatinine Ratio 13.5 10.0-20.0 Serum Glucose 271 H 74-106 mg/dL Calcium Level 10.1 8.7-10.4 mg/dL Magnesium Level 2.0 1.6-2.6 mg/dL Total Bilirubin 0.3 0.2-1.0 mg/dL Aspartate Amino Transferase (AST) 19 <34 U/L Alanine Aminotransferase (ALT) 47 H 7-40 U/L Alkaline Phosphatase 107 46-116 U/L B-Type Natriuretic Peptide 2.16 0-100 pg/mL Total Protein 7.4 5.7-8.2 g/dL Albumin 4.7 3.2-4.8 g/dL [place] [id number] Ph: [phone] DIAGNOSTIC IMAGING Diagnostic Imaging Report : [id number] Signed PATIENT: KENDALL SHAW ACCT: [id number] UNIT: [id number] : 1975 LOC: ER ROOM / BED: / AGE / SEX: 49 / M ADM STATUS: REG ER SERVICE [id number] ORDERING PHYSICIAN: TONYA EPSTEIN DO PROCEDURE(s): CXRP - CHEST PORTABLE REASON: sob, cough ORDER NUMBER(s): [id number], ACCESSION NUMBER(s): [id number] CHEST RADIOGRAPH Indication: sob, cough Technique: Single frontal view of the chest was obtained COMPARISON: XY CHEST PORTABLE on DOS: 12/08/22, CHEST PORTABLE on DOS: 04/25/20 FINDINGS: Lines and Tubes: None Lungs: Clear Pleura: No effusion. No pneumothorax. Cardiomediastinal contours: Unremarkable Bones: Unremarkable IMPRESSION: No acute disease. ATED BY: EZIO YO MD DICTATED DATE/TIME: 01/15/251831 SIGNED BY: EZIO YO MD SIGNED DATE/TIME: 01/15/251831 CC: Time of 1ST Reevaluation: 00:00 Reevaluation 1ST: Unchanged Patient Education/Counseling: Diagnosis, Treatment Family Education/Counseling: No Family Present Comments Patient presented with the above HPI.--cough/URI----workup was initiated. patient was found with the above mentioned diagnosis. the following medications were ordered: please refer to order lists of meds and tests obtained by myself Dr. Epstein. Patient ED course and VS have been stabilized. Patient has been reassessed in the ED and remained in a stable condition. Pertinent incidental findings were discussed with the patient and/or family. Patient/family voices understanding and is agreeable with plan. Patient has been observed in the ED adequate length of time to insure imp rovement/stability. Escalation of care considered: Consideration of escalation to observation or admission No acute findings on our workup today. Patient was DISCHARGED home in a stable condition. All the reports of any imaging studies that were ordered by myself were reviewed by myself. Departure 1 Departure Time of Disposition: 19:34 Impression: Primary Impression: Acute bronchitis Disposition: 01 HOME / SELF CARE / HOMELESS Condition: Stable Additional Instructions: Additional instructions: You MUST follow-up with your primary care/family doctor in 1 to 2 days. If you are unable to see your primary care/family doctor, please return to our emergency room for re-assessment and re-evaluation in 1 to 2 days. Return to the emergency room here in our facility or to the nearest ER [facility] if your symptoms change or worsen. CONSULTATIONS: you MUST Follow-up for consultation as soon as possible with: -pulmonology and cardiology in 1-2 days. Please call for appointment. You MUST call the consultants office yourself to make an appointment. You may need to arrange that through your insurance and/or your primary/family doctor. If you are unable to see the guidance consultant in 1 to 2 days, you must return to our emergency room (or any other ER of your choice) for re-assessment and re- evaluation. Adequate fluid hydration. Below is a copy of your radiological report for follow up: [address] [address] Ph: [phone] DIAGNOSTIC IMAGING Diagnostic Imaging Report : [id number] Signed PATIENT: KENDALL SHAW ACCT: [id number] UNIT: [id number] : 1975 LOC: ER ROOM / BED: / AGE / SEX: 49 / M ADM STATUS: REG ER SERVICE [id number] ORDERING PHYSICIAN: TONYA EPSTEIN DO PROCEDURE(s): CXRP - CHEST PORTABLE REASON: sob, cough ORDER NUMBER(s): [id number], ACCESSION NUMBER(s): [id number] CHEST RADIOGRAPH Indication: sob, cough Technique: Single frontal view of the chest was obtained COMPARISON: XY CHEST PORTABLE on DOS: 12/08/22, CHEST PORTABLE on DOS: 04/25/20 FINDINGS: Lines and Tubes: None Lungs: Clear Pleura: No effusion. No pneumothorax. Cardiomediastinal contours: Unremarkable Bones: Unremarkable IMPRESSION: No acute disease. ATED BY: EZIO YO MD DICTATED DATE/TIME: 01/15/251831 SIGNED BY: EZIO YO MD SIGNED DATE/TIME: 01/15/251831 CC: e-Prescriptions Azithromycin (Azithromycin) 500 Mg Tab 500 MG PO DAILY for 6 Days, #6 TAB Prov: TONYA EPSTEIN DO 01/15/25 Discharged With: Self Critical Care Note Critical Care Time?: No Heart Score Heart Score: Heart Score Response (Comments) Value History Slightly Suspicious 0 EKG Normal 0 Age 45-64 1 Risk Factors 1 or 2 risk factors 1 Troponin Normal limit 0 Total 2 I personally scribed for TONYA EPSTEIN DO ([email or web address]) on 01/15/25 at 19:10. Electronically submitted by Leobardo Helms ([email or web address]). I personally scribed for TONYA EPSTEIN DO ([email or web address]) on 01/15/25 at 21:41. Electronically submitted by Leobardo Helms ([email or web address]). TONYA EPSTEIN DO Jan 15, 2025 16:41
[2025-01-15 17:08] LABS: Basophils # (auto) 0.1 10 ^3/uL (0-0.2); Eosinophils # (auto) 0.1 10 ^3/uL (0-0.8); Hemoglobin 17.4 g/dL (13.5-17.5); Monocytes # (auto) 0.9 10 ^3/uL (0-1.3); Neutrophils # (auto) 4.9 10 ^3/uL (1.6-8.6)
[2025-01-15 17:10] LABS: Basophils % (auto) 0.8 % (0.0-2.0); Eosinophils % (auto) 1.7 % (0.0-7.0); Hematocrit 50.6 % (41.0-53.0); Lymphocytes # (auto) 2.3 10 ^3/uL (0.4-5.4); Mean Corpuscular Hemoglobin 28.3 pg (28.0-32.0); Mean Corpuscular Hgb Conc. 34.5 g/dL (32.0-36.0); Mean Corpuscular Volume 81.9 fL (80.0-100.0); Monocytes % (auto) 11.3 % (0.0-12.0); Neutrophils % (auto) 58.2 % (37.0-80.0); Nucleated Red Blood Cells % 0.2 %; Platelet Count (auto) 288 10^3/uL (140-450); Red Blood Cells 6.18 10^6/uL (4.5-5.90); Red Cell Distribution Width 14.4 % (11.8-14.3); White Blood Cell 8.4 10^3/uL (4.4-10.8)
[2025-01-15 17:27] LABS: Albumin 4.7 g/dL (3.2-4.8); Alkaline Phosphatase 107 U/L (46-116); Anion Gap 11 (5-15); Aspartate Aminotransferase 19 U/L (<34); BUN/Creatinine Ratio 13.5 (10.0-20.0); Blood Urea Nitrogen 15 mg/dL (9-23); Calcium 10.1 mg/dL (8.7-10.4); Carbon Dioxide 24 mmol/L (20-31); Chloride 102 mmol/L (98-107); Potassium 4.4 mmol/L (3.5-5.1); Sodium 137 mmol/L (136-145); Total Protein 7.4 g/dL (5.7-8.2)
[2025-01-15 17:28] LABS: Bilirubin, Total 0.3 mg/dL (0.2-1.0)
[2025-01-15 17:41] LABS: Alanine Aminotransferase 47 U/L (7-40); Glucose 271 mg/dL (74-106)
[2025-01-15 17:47] LABS: Rapid Influenza A Negative (Negative); Rapid Influenza B Negative (Negative)
[2025-01-15 17:47] LABS: Lactic Acid w/Reflex 2.3 mmol/L (0.4-2.0)
[2025-01-15 17:48] LABS: COVID19 ANTIGEN SOFIA FIA NEGATIVE (NEGATIVE)
--- NOTE | 2025-01-15 18:34 | DVH ---
CHEST RADIOGRAPH Indication: sob, cough Technique: Single frontal view of the chest was obtained COMPARISON: XY CHEST PORTABLE on DOS: 12/08/22, CHEST PORTABLE on DOS: 04/25/20 FINDINGS: Lines and Tubes: None Lungs: Clear Pleura: No effusion. No pneumothorax. Cardiomediastinal contours: Unremarkable Bones: Unremarkable IMPRESSION: No acute disease.
[2025-01-15] MEDS: IPRATROPIUM BROM 0.5 MG/2.5ML INH SOL NEB ONE (19:12)
[2025-01-15] MEDS: ALBUTEROL SULF 2.5 MG/0.5ML(0.5%) NEB SOLN NEB ONE (19:12)
[2025-01-15] MEDS ORDERED: AZIT500T66 PO (19:35)
[2025-01-15 20:14] VITALS: BP 124/90; PULSE 98; RESP 20; O2SAT 94
--- NOTE | 2025-01-16 06:49 | ECG ---
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
== END 2025-01-15 20:15 | disposition home or self-care (01) ==
LOC: ER 16:23
DX: J20.9 Acute bronchitis, unspecified (principal); I25.10 Atherosclerotic heart disease of native coronary artery without angina pectoris; I10 Essential (primary) hypertension; F12.90 Cannabis use, unspecified, uncomplicated; E78.5 Hyperlipidemia, unspecified; Z20.822 Contact with and (suspected) exposure to COVID-19
CPT/HCPCS: 36415; 71045; 80053; 83605; 83735; 83880; 84484; 85025; 87426; 87804; 93005; 94640

== ENCOUNTER 2025-01-25 05:07 | Emergency (ER) | payer MEDICAID ==
[~2025-01-25] VITALS: Ht 175.3 cm; Wt 154.5 kg
[~2025-01-25 05:07] MED LIST changes: +AZIT500T66 PO
--- NOTE | 2025-01-25 05:54 | ECG ---
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
--- NOTE | 2025-01-25 06:11 | ED.PDOC ---
SOB-HPI HPI Comments 49 y/o M, presents to the ED for CC of shortness of breath. Patient states, he has been experiencing shortness of breath with an associated cough, nasal congestion, and intermittent chest discomfort [id number]. Patient reports, that he uses home O2 PRN however, has no respiratory history. Patient comments, that he has been unable to at times get his O2 levels above 90%. Patient denies fever, chills, or sore-throat. No other symptoms or modifying factors present at this time. Chief Complaint: Shortness of Breath Time Seen by MD: 06:15 Primary Care Provider: UNKNOWN Reviewed notes: Nurses Notes, Medications, Allergies Information Source: Patient Mode of Arrival: Ambulatory Severity: Moderate Timing: Weeks Duration: Since onset History of: None Prehospital treatment: None Modifying Factors: Nothing Associated Signs and Symptoms: Cough, Nasal Congestion, Chest Pain Radiation: No Radiation Location: Substernal If cough with SOB: Non-Productive Past Medical History PAST MEDICAL HISTORY: Anxiety, CAD, High Lipids, HTN, Kidney Stones, [place] Family History Family History: No family hx of Cancer, No family hx of DM, No family hx of Heart naa Social History Smoker: Non-Smoker Alcohol: Occasionally Drugs: Marijuana Lives In: Home Constitutional: denies: chills, diaphoresis, fatigue, fever, malaise, sweats, weakness, others EENTM: reports: nose congestion; denies: blurred vision, double vision, ear bleeding, ear discharge, ear drainage, ear pain, ear ringing, eye pain, eye redness, hearing loss, mouth pain, mouth swelling, nasal discharge, nose ble eding, nose pain, photophobia, tearing, throat pain, throat swelling, voice changes, others Respiratory: reports: cough, shortness of breath; denies: hemoptysis, orthopnea, SOB at rest, SOB with excertion, stridor, wheezing, others Cardiovascular: reports: chest pain; denies: dizzy spells, diaphoresis, Dyspnea on exertion, edema, irregular heart beat, left arm pain, lightheadedness, palpitations, PND, syncope, others Gastrointestinal: denies: abdomen distended, abdominal pain, blood streaked bowels, constipated, diarrhea, dysphagia, difficulty swallowing, hematemesis, melena, nausea, poor appetite, poor fluid intake, rectal bleeding, rectal pain, vomiting, others Genitourinary: denies: burning, dysuria, flank pain, frequency, hematuria, incontinence, penile discharge, penile sore, pain, testicle pain, testicle swelling, urgency, others Neurological: denies: dizziness, fainting, headache, left sided numbness, left sided weakness, numbness, paresthesia, pre-existing deficit, right sided numbness, right sided weakness, seizure, speech problems, tingling, tremors, weakness, others Musculoskeletal: denies: back pain, gout, joint pain, joint swelling, muscle pain, muscle stiffness, neck pain, others Integumetry: denies: bruises, change in color, change in hair/nails, dryness, laceration, lesions, lumps, rash, wounds, others Allergic/Immunocompromised: denies: Difficulty Healing, Frequent Infections, Hives, Itching, others Hematologic/Lymphatic: denies: anemia, blood clots, easy bleeding, easy bruising, swollen glands, others Endocrine: denies: excessive hunger, excessive sweating, excessive thirst, excessive urination, flushing, intolerance to cold, intolerance to heat, unexplained weight gain, unexplained weight loss, others Psychiatric: denies: anxiety, bipolar disorder, depression, hopeless, panic disorder, schizophrenia, sleepless, suicidal, others All Other Systems: Reviewed and Negative Physical Exam General Appearance: Moderate Distress HEENT: Normal ENT Inspection, Pharynx Normal, TMs Normal Neck: Full Range of Motion, Non-Tender, Normal, Normal Inspection Respiratory: Chest Non-Tender, Lungs Clear, No Accessory Muscle Use, No Respiratory Distress, Normal Breath Sounds Cardiovascular: No Edema, No JVD, No Murmur, No Gallop, Normal Peripheral Pulses, Regular Rate/Rhythm Breast Exam: Deferred Gastrointestinal: No Organomegaly, Non Tender, No Pulsatile Mass, Normal Bowel Sounds, Soft Genitalia: Deferred Pelvic: Deferred Rectal: Deferred Extremities: No calf tenderness, Normal capillary refill, Normal inspection, Normal range of motion, Non-tender, No pedal edema Musculoskeletal : Apperance: Normal Neurologic: Alert, bank credit 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 Was a procedure done?: No Differential Dx Differential Diagnosis: Anxiety, Asthma, Bronchitis, CHF, COPD, Pneumonia, Pulmonary Embolism, Sinusitis, Pharyngitis, URI X-Ray, Labs, Meds, VS Vital Signs Date Time Temp Pulse Resp B/P (MAP) Pulse Ox O2 Delivery O2 Flow Rate FiO2 01/25/25 09:02 97.9 96 18 150/89 (109) 95 97.9 01/25/25 07:32 98.0 102 18 142/88 (106) 93 98.0 01/25/25 06:49 103 01/25/25 05:46 107 01/25/25 05:30 98.2 112 20 126/94 (105) 95 98.2 Lab Test 01/25/25 07:14 Range/Units D-Dimer, Quantitative < 0.19 0.0-0.49 mg/L [place] [id number] Ph: [phone] DIAGNOSTIC IMAGING Diagnostic Imaging Report : [id number] Signed PATIENT: KENDALL SHAW ACCT: [id number] UNIT: [id number] : 1975 LOC: ER ROOM / BED: / AGE / SEX: 49 / M ADM STATUS: REG ER SERVICE 6 ORDERING PHYSICIAN: ANA HERRERA MD PROCEDURE(s): CXRP - CHEST PORTABLE REASON: cough ORDER NUMBER(s): [id number], ACCESSION NUMBER(s): [id number] EXAM: XR Chest, 1 View CLINICAL INDICATION: cough TECHNIQUE: Frontal view of the chest. COMPARISON: No relevant prior studies available. FINDINGS: LUNGS AND PLEURAL SPACES: Unremarkable. No consolidation. No pneumothorax. HEART: Unremarkable. No cardiomegaly. MEDIASTINUM: Unremarkable. Normal mediastinal contour. BONES/JOINTS: Unremarkable. No acute fracture. OTHER FINDINGS: Comparison XY CHEST PORTABLE on DOS: 01/15/25, XY CHEST PORTABLE on DOS: 12/08/22, CHEST PORTABLE on DOS: 04/25/20. IMPRESSION: No acute cardiopulmonary process. HS:Y ATED BY: ASHISH PALACIOS MD DICTATED DATE/TIME: 01/25/2514 SIGNED BY: ASHISH PALACIOS MD SIGNED DATE/TIME: 01/25/25733 CC: Patient alert. Complaining of cough. Vitals stable. Answering questions. Chest x-ray reviewed does show mild inflammation but no acute process. D-dimer within normal limits. No leg swelling. No chest pain. Saturation pristine on room air. Possible pneumonitis. Was given prescription of prednisolone amoxicillin antibiotic. Explained to the patient. Was told to follow up with his primary care physician. Was told to come back if there is any problem. Time of 1ST Reevaluation: 06:45 Reevaluation 1ST: Unchanged Patient Education/Counseling: Diagnosis, Treatment Family Education/Counseling: No Family Present SEPSIS Sepsis Screen Date sepsis recognized/suspect: Jan 25, 2025 Time Sepsis recognized/suspect: 531 Recent Procedure: No On Antibiotic Therapy: No Respiratory Rate >20: No Heart Rate >90: Yes Temp<36 C (96.8 F) or >38.3 C: No SBP <90 or MAP <65 mmHG: No New Acute Mental Status Change: No Is the patient on CPAP, BIPAP,: No Physician Orders Electrocardigram (01/25/25 06:52) Chest Portable (01/25/25 06:37) Vital Signs Date Time Temp Pulse Resp B/P (MAP) Pulse Ox O2 Delivery O2 Flow Rate FiO2 01/25/25 09:02 97.9 96 18 150/89 (109) 95 97.9 01/25/25 07:32 98.0 102 18 142/88 (106) 93 98.0 01/25/25 06:49 103 01/25/25 05:46 107 01/25/25 05:30 98.2 112 20 126/94 (105) 95 98.2 Departure 1 Departure Time of Disposition: 09:20 Impression: Primary Impression: Pneumonitis Disposition: 01 HOME / SELF CARE / HOMELESS Condition: Good e-Prescriptions Amoxicillin Trihydrate (Amoxicillin) 500 Mg Tab 1 TAB PO TID for 7 Days, #21 TAB Prov: ANA HERRERA MD 01/25/25 Prednisone (Prednisone) 10 Mg Tab 10 MG PO DAILY for 7 Days, #7 MG Prov: ANA HERRERA MD 01/25/25 Discharged With: Self Critical Care Note Critical Care Time?: No Stability Stability form required: No Heart Score Heart Score: Heart Score Response (Comments) Value History N/A 0 EKG N/A 0 Age N/A 0 Risk Factors N/A 0 Troponin N/A 0 Total 0 I personally scribed for ANA HERRERA MD ([email or web address]) on 01/25/25 at 06:11. Electronically submitted by Brandy Coffey ([employer]). I personally scribed for ANA HERRERA MD ([email or web address]) on 01/25/25 at 06:21. Electronically submitted by Brnady Coffey ([employer]). I personally scribed for ANA HERRERA MD ([email or web address]) on 01/25/25 at 07:49. Electronically submitted by Brandy Coffey ([employer]). ANA HERRERA MD Jan 25, 2025 06:11
--- NOTE | 2025-01-25 07:36 | DVH ---
EXAM: XR Chest, 1 View CLINICAL INDICATION: cough TECHNIQUE: Frontal view of the chest. COMPARISON: No relevant prior studies available. FINDINGS: LUNGS AND PLEURAL SPACES: Unremarkable. No consolidation. No pneumothorax. HEART: Unremarkable. No cardiomegaly. MEDIASTINUM: Unremarkable. Normal mediastinal contour. BONES/JOINTS: Unremarkable. No acute fracture. OTHER FINDINGS: Comparison XY CHEST PORTABLE on DOS: 01/15/25, XY CHEST PORTABLE on DOS: 12/08/22, SANJEEV ST PORTABLE on DOS: 04/25/20. IMPRESSION: No acute cardiopulmonary process. HS:Y
[2025-01-25 09:02] VITALS: BP 150/89; PULSE 96; RESP 18; TEMP 97.9; O2SAT 95
[2025-01-25] MEDS ORDERED: AMOX500T3 PO (09:21)
[2025-01-25] MEDS ORDERED: PRED10TA PO (09:21)
--- NOTE | 2025-01-27 08:20 | ECG ---
[facility] Test Date: 2025-01-25 Test Time: 06:49:20 Pat Name: KENDALL SHAW Department: ED Room: Gender: M Upper Cutter: MEÑO : 1975 Requested By: EMERGENCY EMERGENCY Order Number: [id number] Reading MD: Arben Torrez Measurements Intervals [place] Rate: 103 P: 53 [place]: 163 QRS: 157 QRSD: 120 T: 44 QT: 344 QTc: 451 Interpretive Statements Incomplete analysis due to missing data in precordial lead(s) Sinus tachycardia Nonspecific intraventricular conduction delay ST elev, probable normal early repol pattern Missing lead(s): V1 Electronically Signed On 01-27-2025 20:05:30 PDT by Arben Torrez Please click the below link to view image of tracing.
== END 2025-01-25 10:17 | disposition home or self-care (01) ==
LOC: ER 05:07
DX: J98.4 Other disorders of lung (principal); I25.10 Atherosclerotic heart disease of native coronary artery without angina pectoris; I10 Essential (primary) hypertension; I25.2 Old myocardial infarction; F12.90 Cannabis use, unspecified, uncomplicated
CPT/HCPCS: 36415; 71045; 85379; 93005

== ENCOUNTER 2025-02-04 05:01 | Inpatient (IN) | payer MEDICAID ==
[2025-02-04] VITALS (11 sets, daily range): BP systolic 110–148; BP diastolic 72–99; PULSE 99–115; RESP 14–22; TEMP 97.5–98.3; O2SAT 92–99
[~2025-02-04] VITALS: Ht 175.3 cm; Wt 152.9 kg
[~2025-02-04 05:01] MED LIST changes: +AMOX500T3 PO; +PRED10TA PO
[2025-02-04] MEDS: IPRATROPIUM BROM 0.5 MG/2.5ML INH SOL NEB ONE (06:11)
[2025-02-04] MEDS: ALBUTEROL SULF 2.5 MG/0.5ML(0.5%) NEB SOLN NEB ONE (06:11)
--- NOTE | 2025-02-04 06:17 | DVH ---
EXAM: XY CHEST PORTABLE HISTORY: SOB COMPARISON: XY CHEST PORTABLE on DOS: 01/25/25, XY CHEST PORTABLE on DOS: 01/15/25, XY CHEST PORTABLE o n DOS: 12/08/22, CHEST PORTABLE on DOS: 04/25/20 TECHNIQUE: Portable AP view of the chest was performed. FINDINGS: There is increased central interstitial prominence. No consolidative infiltrates or pneumothorax. The heart is borderline enlarged. Spinal cord stimulator is re-identified. There is abundant overlying a dipose tissue. IMPRESSION: 1. Increased central interstitial prominence may be due to reactive airways disease or CHF. 2. Obesity.
--- NOTE | 2025-02-04 06:28 | ECG ---
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
[2025-02-04 06:33] LABS: Hematocrit 48.4 % (41.0-53.0); Hemoglobin 16.3 g/dL (13.5-17.5); Mean Corpuscular Hemoglobin 28.0 pg (28.0-32.0); Mean Corpuscular Volume 83.3 fL (80.0-100.0); Nucleated Red Blood Cells % 0.2 %
[2025-02-04] MEDS: methylPREDNISolone SOD SUCC 125 MG/2 ML VL IV ONE (06:53)
[2025-02-04] MEDS: ONDANSETRON HCL 4 MG/2 ML VIAL IV ONE (06:53)
--- NOTE | 2025-02-04 06:53 | ED.PDOC ---
History of Present Illness HPI Comments 49-year-old male presents to the ER with prior medical history of anxiety, CAD, high lipids, hypertension, kidney stones, mi and a chief complaint of shortness a breath. Patient reports on having shortness a breath with cough for 4 weeks, but before the he was admitted to the hospital for bronchitis and before that he had pneumonia. Patient states that his home saturation was at 92%. Patient notes that he is currently going through insurance situation so the patient has not been he to uses home O2 when he needs due from that. Denies chills, fever, N/V/D, CP. No other associated symptoms, modifiers, recent injuries or sick contacts present at this time. Chief Complaint: Shortness of Breath Time Seen by MD: 06:25 Primary Care Provider: UNKNOWN Reviewed Notes: Nurses Notes, Medications, Allergies Allergies: Coded Allergies: NO KNOWN ALLERGIES (Unverified , 01/31/20) Home Meds Active Scripts Amoxicillin Trihydrate (Amoxicillin) 500 Mg Tab, 1 TAB PO TID for 7 Days, #21 TAB Prov:ANA HERRERA MD 01/25/25 Prednisone (Prednisone) 10 Mg Tab, 10 MG PO DAILY for 7 Days, #7 MG Prov:ANA HERRERA MD 01/25/25 Azithromycin (Azithromycin) 500 Mg Tab, 500 MG PO DAILY for 6 Days, #6 TAB Prov:TONYA EPSTEIN DO 01/15/25 Methylprednisolone (Medrol Dosepak) 4 Mg Casey, 4 MG PO UD, #21 TAB UAD Prov:PHUC GAMA MD 10/05/22 Azithromycin (Zithromax) 1 Gm Pow, 1 PACK PO ONCE, #1 PACK Prov:PHUC GAMA MD 10/05/22 Levofloxacin (Levaquin 750 mg) 750 Mg Tab, 1 TAB PO DAILY, #10 TAB Prov:NURYS DE JESUS MD 04/26/20 Tamsulosin Hcl (Flomax) 0.4 Mg Cap, 0.4 MG PO QPM for 30 Days, #30 CAP Prov:PUMA CHOE MD 02/16/20 Reported Medications Oxycodone W/ Acetaminophen (Apap/Oxycodone) 1 Tab Tab, 1 TAB PO TID, #90 TAB 04/24/20 Naproxen (NAPROSYN TABLET) 500 Mg Tb, 1 TAB PO BID 04/24/20 Docusate Sodium (Docusate Sodium) 100 Mg Cap, 1 CAP PO BID 04/24/20 Hydrocodone-Acetaminophen (Hydrocodone/Acetaminophen 10-325 mg) 1 Tab Tab, 1 TAB PO BID, TAB 04/24/20 Gabapentin (Gabapentin) 300 Mg Cap, 1 CAP PO TID 04/24/20 Information Source: Patient Mode of Arrival: Ambulatory Severity: Moderate Timing: Weeks Duration: Since onset Prehospital treatment: None Past Medical History PAST MEDICAL HISTORY: Anxiety, CAD, High Lipids, HTN, Kidney Stones, [place] Surgical History: Denies all surgeries Family History Family History: Reviewed,noncontributory to illness, Unknown Social History Smoker: Unknown Alcohol: Unknown Drugs: Unknown Lives In: Home Constitutional: denies: chills, diaphoresis, fatigue, fever, malaise, sweats, weakness, others EENTM: denies: blurred vision, double vision, ear bleeding, ear discharge, ear drainage, ear pain, ear ringing, eye pain, eye redness, hearing loss, mouth pain, mouth swelling, nasal discharge, nose bleeding, nose congestion, nose pain, photophobia, tearing, throat pain, throat swelling, voice changes, others Respiratory: reports: cough, shortness of breath; denies: hemoptysis, orthopnea, SOB at rest, SOB with excertion, stridor, wheezing, others Cardiovascular: denies: chest pain, dizzy spells, diaphoresis, Dyspnea on exertion, edema, irregular heart beat, left arm pain, lightheadedness, palpitations, PND, syncope, others Gastrointestinal: denies: abdomen distended, abdominal pain, blood streaked bowels, constipated, diarrhea, dysphagia, difficulty swallowing, hematemesis, melena, nausea, poor appetite, poor fluid intake, rectal bleeding, rectal pain, vomiting, others Genitourinary: denies: burning, dysuria, flank pain, frequency, hematuria, incontinence, penile discharge, penile sore, pain, testicle pain, testicle swelling, urgency, others Neurological: denies: dizziness, fainting, headache, left sided numbness, left sided weakness, numbness, paresthesia, pre-existing deficit, right sided numbness, right sided weakness, seizure, speech problems, tingling, tremors, weakness, others Musculoskeletal: denies: back pain, gout, joint pain, joint swelling, muscle pain, muscle stiffness, neck pain, others Integumetry: denies: bruises, change in color, change in hair/nails, dryness, laceration, lesions, lumps, rash, wounds, others Allergic/Immunocompromised: denies: Difficulty Healing, Frequent Infections, Hives, Itching, others Hematologic/Lymphatic: denies: anemia, blood clots, easy bleeding, easy bruising, swollen glands, others Endocrine: denies: excessive hunger, excessive sweating, excessive thirst, excessive urination, flushing, intolerance to cold, intolerance to heat, unexplained weight gain, unexplained weight loss, others Psychiatric: denies: anxiety, bipolar disorder, depression, hopeless, panic disorder, schizophrenia, sleepless, suicidal, others All Other Systems: Reviewed and Negative Physical Exam General Appearance: Moderate Distress, Normal HEENT: Normal ENT Inspection, Pharynx Normal, TMs Normal Neck: Full Range of Motion, Non-Tender, Normal, Normal Inspection Respiratory: Chest Non-Tender, Lungs Clear, No Accessory Muscle Use, No Respiratory Distress, Normal Breath Sounds Cardiovascular: No Edema, No JVD, No Murmur, No Gallop, Normal Peripheral Pulses, Regular Rate/Rhythm Breast Exam: Deferred Gastrointestinal: No Organomegaly, Non Tender, No Pulsatile Mass, Normal Bowel Sounds, Soft Genitalia: Deferred Pelvic: Deferred Rectal: Deferred Extremities: No calf tenderness, Normal capillary refill, Normal inspection, Normal range of motion, Non-tender, No pedal edema Musculoskeletal : Apperance: Normal Neurologic: Alert, quality 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 Was a procedure done?: No Differential Dx Considerations may include: Pneumonia Electrolyte imbalance X-Ray, Labs, Meds, VS Vital Signs Date Time Temp Pulse Resp B/P (MAP) Pulse Ox O2 Delivery O2 Flow Rate FiO2 02/04/25 06:54 114 18 145/93 02/04/25 06:27 109 02/04/25 06:12 16 97 Simple Mask* 6 50 02/04/25 05:46 96 Nasal Cannula* 6 44 02/04/25 05:46 98.3 103 12 136/97 (110) 96 98.3 02/04/25 05:30 98.0 106 16 146/120 (129) 93 98.0 Lab Test 02/04/25 06:03 Range/Units White Blood Count 6.0 4.4-10.8 10^3/uL Red Blood Count 5.81 4.5-5.90 10^6/uL Hemoglobin 16.3 13.5-17.5 g/dL Hematocrit 48.4 41.0-53.0 % Mean Corpuscular Volume 83.3 80.0-100.0 fL Mean Corpuscular Hemoglobin 28.0 28.0-32.0 pg Mean Corpuscular Hemoglobin Concent 33.6 32.0-36.0 g/dL Red Cell Distribution Width 14.4 H 11.8-14.3 % Platelet Count 234 140-450 10^3/uL Mean Platelet Volume 7.5 6.9-10.8 fL Neutrophils (%) (Auto) 60.8 37.0-80.0 % Lymphocytes (%) (Auto) 26.2 10.0-50.0 % Monocytes (%) (Auto) 9.8 0.0-12.0 % Eosinophils (%) (Auto) 2.3 0.0-7.0 % Basophils (%) (Auto) 0.9 0.0-2.0 % Neutrophils # (Auto) 3.6 1.6-8.6 10 ^3/uL Lymphocytes # (Auto) 1.6 0.4-5.4 10 ^3/uL Monocytes # (Auto) 0.6 0-1.3 10 ^3/uL Eosinophils # (Auto) 0.1 0-0.8 10 ^3/uL Basophils # (Auto) 0.1 0-0.2 10 ^3/uL Nucleated Red Blood Cells 0.2 % Sodium Level 135 L 136-145 mmol/L Potassium Level 4.2 3.5-5.1 mmol/L Chloride Level 102 98-107 mmol/L Carbon Dioxide Level 22 20-31 mmol/L Anion Gap 11 5-15 Blood Urea Nitrogen 9 9-23 mg/dL Creatinine 1.00 0.700-1.30 mg/dL Glomerular Filtration Rate Calc 93 >90 mL/min BUN/Creatinine Ratio 9.0 L 10.0-20.0 Serum Glucose 374 H 74-106 mg/dL Calcium Level 9.4 8.7-10.4 mg/dL Total Bilirubin 0.3 0.2-1.0 mg/dL Aspartate Amino Transferase (AST) 19 13-40 U/L Alanine Aminotransferase (ALT) 44 H 7-40 U/L Alkaline Phosphatase 108 46-116 U/L Troponin I High Sensitivity < 3 L </=54 ng/L B-Type Natriuretic Peptide 8.29 0-100 pg/mL Total Protein 6.4 5.7-8.2 g/dL Albumin 4.1 3.2-4.8 g/dL Current Medications Medications (Trade) Dose Ordered Sig/Reid Route Start Time Stop Time Status Last Admin Albuterol (Ventolin Medneb) 5 mg ONCE ONCE NEB 02/04/25 06:00 02/04/25 06:01 DC 02/04/25 06:11 Ipratropium [place] (Atrovent Medneb) 0.5 mg ONCE ONCE NEB 02/04/25 06:00 02/04/25 06:01 DC 02/04/25 06:11 Morphine Sulfate 2 mg ONCE ONCE IV 02/04/25 06:30 02/04/25 06:31 DC 02/04/25 06:54 Ondansetron HCl (Zofran) 4 mg ONCE ONCE IV 02/04/25 06:30 02/04/25 06:31 DC 02/04/25 06:53 Methylprednisolone Sodium Succinate (Solu Medrol) 125 mg ONCE ONCE IV 02/04/25 06:45 02/04/25 06:46 DC 02/04/25 06:53 Ceftriaxone Sodium 50 ml @ 100 mls/hr ONCE ONCE IV 02/04/25 06:45 02/04/25 07:14 02/04/25 06:[address] [address] Ph: [phone] DIAGNOSTIC IMAGING Diagnostic Imaging Report : [id number] Signed PATIENT: KENDALL SHAWACCT: [id number] UNIT: [id number] : 1975 LOC: ER ROOM / BED: / AGE / SEX: 49 / M ADM STATUS: REG ER SERVICE 0542 ORDERING PHYSICIAN: JOSELO,TIGRE SAUSAGE GRINDER PROCEDURE(s): CXRP - CHEST PORTABLE REASON: SOB ORDER NUMBER(s): [id number], ACCESSION NUMBER(s): [id number] EXAM: XY CHEST PORTABLE HISTORY: SOB COMPARISON: XY CHEST PORTABLE on DOS: 01/25/25, XY CHEST PORTABLE on DOS: 01/15/25, XY CHEST PORTABLE on DOS: 12/08/22, CHEST PORTABLE on DOS: 04/25/20 TECHNIQUE: Portable AP view of the chest was performed. FINDINGS: There is increased central interstitial prominence. No consolidative infiltrates or pneumothorax. The heart is borderline enlarged. Spinal cord stimulator is re-identified. There is abundant overlying adipose tissue. IMPRESSION: 1. Increased central interstitial prominence may be due to reactive airways disease or CHF. 2. Obesity. ATED BY: ELDA PAGE MD DICTATED DATE/TIME: 02/04/25613 SIGNED BY: ELDA PAGE MD SIGNED DATE/TIME: 02/04/25613 CC: Patient alert. Complaining of shortness a breath. Has been battling this for many weeks pain Placed on oxygen. Chest x-ray does show pneumonitis versus CHF. Was given Rocephin. Was given azithromycin. Was given steroid. Was given breathing treatment. Reviewed his previous visit. EKG reviewed does not show any acute changes. Explained to the patient. Was told to follow up with his primary care physician. Was told to come back if there is any problem. Time of 1ST Reevaluation: 06:55 Reevaluation 1ST: Unchanged Patient Education/Counseling: Diagnosis, Treatment, Prognosis Family Education/Counseling: No Family Present SEPSIS Sepsis Screen Date sepsis recognized/suspect: Feb 04, 2025 Time Sepsis recognized/suspect: 529 Recent Procedure: No On Antibiotic Therapy: No Respiratory Rate >20: No Heart Rate >90: No Temp<36 C (96.8 F) or >38.3 C: No SBP <90 or MAP <65 mmHG: No New Acute Mental Status Change: No Is the patient on CPAP, BIPAP,: No Physician Orders Chest Portable (02/04/25 05:42) Troponin-I Hs (02/04/25 06:50) Troponin-I Hs (02/04/25 08:50) Electrocardigram (02/04/25 06:50) Electrocardigram (02/04/25 08:50) Magnesium Sulfate 1gm/100ml (02/04/25 06:45) Ceftriaxone 1gm/50ml D5w (Rocephin) (02/04/25 06:45) Azithromycin 500mg/ 250ml (Zithromax 50 (02/04/25 06:45) Vital Signs Date Time Temp Pulse Resp B/P (MAP) Pulse Ox O2 Delivery O2 Flow Rate FiO2 02/04/25 06:54 114 18 145/93 02/04/25 06:27 109 02/04/25 06:12 16 97 Simple Mask* 6 50 02/04/25 05:46 96 Nasal Cannula* 6 44 02/04/25 05:46 98.3 103 12 136/97 (110) 96 98.3 02/04/25 05:30 98.0 106 16 146/120 (129) 93 98.0 Laboratory Tests Test 02/04/25 06:03 White Blood Count 6.0 10^3/uL (4.4-10.8) Medications Medications Dose Ordered Sig/Reid Route Start Time Stop Time Status Last Admin Dose Admin Albuterol 5 mg ONCE ONCE NEB 02/04/25 06:00 02/04/25 06:01 DC 02/04/25 06:11 Ceftriaxone Sodium 50 ml @ 100 mls/hr ONCE ONCE IV 02/04/25 06:45 02/04/25 07:14 02/04/25 06:55 Ipratropium [place] 0.5 mg ONCE ONCE NEB 02/04/25 06:00 02/04/25 06:01 DC 02/04/25 06:11 Methylprednisolone Sodium Succinate 125 mg ONCE ONCE IV 02/04/25 06:45 02/04/25 06:46 DC 02/04/25 06:53 Morphine Sulfate 2 mg ONCE ONCE IV 02/04/25 06:30 02/04/25 06:31 DC 02/04/25 06:54 Ondansetron HCl 4 mg ONCE ONCE IV 02/04/25 06:30 02/04/25 06:31 DC 02/04/25 06:53 Departure 1 Departure Time of Disposition: 07:13 Impression: Primary Impression: Acute respiratory failure Qualified Codes: J96.01 - Acute respiratory failure with hypoxia Additional Impression: Pneumonitis Disposition: 09 ADMITTED INPATIENT Admit to: Med Surg Condition: Guarded Critical Care Note Critical Care Time?: Yes (90 min-critical care time only) Critical care comment: Placed on oxygen Stability Stability form required: No Heart Score Heart Score: Heart Score Response (Comments) Value History Slightly Suspicious 0 EKG Normal 0 Age 45-64 1 Risk Factors >3 or Hx ASHD 2 Troponin Normal limit 0 Total 3 I personally scribed for ANA HERRERA MD ([email or web address]) on 02/04/25 at 06:53. Electronically submitted by Junior Diaz ([employer]). I personally scribed for ANA HERRERA MD ([email or web address]) on 02/04/25 at 07:06. Electronically submitted by Junior Diaz ([employer]). ANA HERRERA MD Feb 04, 2025 06:53
[2025-02-04] MEDS: MORPHINE SULFATE INJ 2 MG/ml SYRG IV ONE (06:54)
[2025-02-04] MEDS: cefTRIAXone 1GM/50ML D5W 50 ML IV ONE (06:55)
[2025-02-04 07:00] LABS: Albumin 4.1 g/dL (3.2-4.8); Alkaline Phosphatase 108 U/L (46-116); Anion Gap 11 (5-15); BUN/Creatinine Ratio 9.0 (10.0-20.0); Bilirubin, Total 0.3 mg/dL (0.2-1.0); Blood Urea Nitrogen 9 mg/dL (9-23); Calcium 9.4 mg/dL (8.7-10.4); Carbon Dioxide 22 mmol/L (20-31); Chloride 102 mmol/L (98-107); Potassium 4.2 mmol/L (3.5-5.1); Total Protein 6.4 g/dL (5.7-8.2)
[2025-02-04 07:01] LABS: Alanine Aminotransferase 44 U/L (7-40); Glucose 374 mg/dL (74-106); Sodium 135 mmol/L (136-145)
[2025-02-04] MEDS: MAGNESIUM SULFATE 1GM/100ML 100 ML IV ONE (07:11)
[2025-02-04] MEDS: AZITHROMYCIN 500MG/ 250ML 250 ML IV ONE (08:12)
[2025-02-04] MEDS ORDERED: ALBUTEROL SULF 2.5 MG/0.5ML(0.5%) NEB SOLN NEB PRN (09:15)
[2025-02-04] MEDS ORDERED: MORPHINE SULFATE INJ 2 MG/ml SYRG IV PRN (09:15)
[2025-02-04] MEDS ORDERED: ACETAMINOPHEN 325 MG TAB PO PRN (09:15)
[2025-02-04] MEDS ORDERED: hydrALAZINE HCL 20 MG/ML VL IV PRN (09:15)
[2025-02-04] MEDS ORDERED: HYDROcodone-ACET 5/325MG TAB PO PRN (09:15)
[2025-02-04] MEDS ORDERED: ONDANSETRON HCL 4 MG/2 ML VIAL IV PRN (09:15)
[2025-02-04] MEDS ORDERED: IPRATROPIUM BROM 0.5 MG/2.5ML INH SOL NEB PRN (09:15)
[2025-02-04] MEDS: IOHEXOL 350 MG/ML 100ML IJ ONE (09:31)
--- NOTE | 2025-02-04 09:37 | DVHHP2 ---
History of Present Illness Reason for Visit: Shortness of breath History of Present Illness A 49-year-old male presents in the emergency department with complaint of shortness of breath that has been progressively worsening over the past four weeks. He reports that shortness of breath is accompanied by a persistent cough. The patient was previously hospitalized twice in the past several weeks---1st for pneumonia and more recent for bronchitis. He states that his oxygen saturation at home has been around 92%. He denies any personal history of asthma or COPD. In the emergency department, he is currently requiring 6 L of oxygen via Oxymizer. A chest x-ray revealed increased central interstitial prominence, which may represent reactive airway disease or congestive heart failure. However both BNP and W BC count are within normal limits. His past medical history includes anxiety, chronic lower back pain, left hip pain, hypertension not currently on medications, hyperlipidemia, questionable CAD, and morbid obesity. Denies history of smoking. Past Medical History Stated in HPI Past Surgical History Denies Family History Reviewed, non-contributory to the management of this case. Past Social History The patient lives at home, denies smoking, alcohol or illicit drugs abuse. Review of Systems Constitutional: Yes: Malaise Eyes: No: Pain, Vision change, Conjunctivae inflammation, Eyelid inflammation, Other, Redness ENT: No: Ear pain, Ear discharge, Nose pain, Nose discharge, Nose congestion, Mouth pain, Mouth swelling, Throat pain, Throat swelling, Other Respiratory: Cough, Shortness of breath, SOB with excertion; No: Dry, Wheezing, Hemoptysis, Pleuritic Pain, Sputum, Wheezing, Other Cardiovascular: No: Chest Pain, Palpitations, Orthopnea, Paroxysmal Noc. Dyspnea, Edema, Lt Headedness, Other Gastrointestinal: No: Nausea, Vomiting, Abdominal Pain, Diarrhea, Constipation, Melena, Hematochezia, Other Genitourinary: No Dysuria, No Frequency, No Incontinence, No Hematuria, No Retention, No Other Musculoskeletal: No: other, neck pain, shoulder pain, arm pain, back pain, hand pain, leg pain, foot pain Skin: No: Rash, Lesions, Jaundice, Bruising, Other Neurological: No: Weakness, Numbness, Incoordination, Change in speech, Confusion, Seizures, Other Allergies: Coded Allergies: NO KNOWN ALLERGIES (Unverified , 01/31/20) Exam Vital Signs Vital Signs Date Time Temp Pulse Resp B/P (MAP) Pulse Ox O2 Delivery O2 Flow Rate FiO2 02/04/25 08:50 101 02/04/25 07:25 12 145/99 02/04/25 06:12 97 Simple Mask* 6 50 02/04/25 05:46 98.3 98.3 General Appearance: Alert, Oriented X3, Cooperative, mild distress HEENT: Atraumatic, PERRLA, EOMI, Mucous membr. moist/pink Respiratory: Other (Diminished lung sounds, Oxymizer 6 L O2 sat 94%) Cardiovascular: Regular rate, Normal S1, Normal S2 Abdominal: Normal bowel sounds, Soft, No tenderness Extremities: No clubbing, No cyanosis, No edema, Normal pulses Skin: No rashes, No breakdown, No significant lesion Neuro: Normal speech, Strength at 5/5 X4 ext, Normal tone Psych/Mental Status: Mental status NL Labs/Xrays Labs Test 02/04/25 09:05 02/04/25 07:18 02/04/25 07:09 02/04/25 06:03 Range/Units POC Glucose 372 H 70-106 mg/dl White Blood Count 6.0 4.4-10.8 10^3/uL Red Blood Count 5.81 4.5-5.90 10^6/uL Hemoglobin 16.3 13.5-17.5 g/dL Hematocrit 48.4 41.0-53.0 % Mean Corpuscular Volume 83.3 80.0-100.0 fL Mean Corpuscular Hemoglobin 28.0 28.0-32.0 pg Mean Corpuscular Hemoglobin Concent 33.6 32.0-36.0 g/dL Red Cell Distribution Width 14.4 H 11.8-14.3 % Platelet Count 234 140-450 10^3/uL Mean Platelet Volume 7.5 6.9-10.8 fL Neutrophils (%) (Auto) 60.8 37.0-80.0 % Lymphocytes (%) (Auto) 26.2 10.0-50.0 % Monocytes (%) (Auto) 9.8 0.0-12.0 % Eosinophils (%) (Auto) 2.3 0.0-7.0 % Basophils (%) (Auto) 0.9 0.0-2.0 % Neutrophils # (Auto) 3.6 1.6-8.6 10 ^3/uL Lymphocytes # (Auto) 1.6 0.4-5.4 10 ^3/uL Monocytes # (Auto) 0.6 0-1.3 10 ^3/uL Eosinophils # (Auto) 0.1 0-0.8 10 ^3/uL Basophils # (Auto) 0.1 0-0.2 10 ^3/uL Nucleated Red Blood Cells 0.2 % Sodium Level 135 L 136-145 mmol/L Potassium Level 4.2 3.5-5.1 mmol/L Chloride Level 102 98-107 mmol/L Carbon Dioxide Level 22 20-31 mmol/L Anion Gap 11 5-15 Blood Urea Nitrogen 9 9-23 mg/dL Creatinine 1.00 0.700-1.30 mg/dL Glomerular Filtration Rate Calc 93 >90 mL/min BUN/Creatinine Ratio 9.0 L 10.0-20.0 Serum Glucose 374 H 74-106 mg/dL Calcium Level 9.4 8.7-10.4 mg/dL Total Bilirubin 0.3 0.2-1.0 mg/dL Aspartate Amino Transferase (AST) 19 13-40 U/L Alanine Aminotransferase (ALT) 44 H 7-40 U/L Alkaline Phosphatase 108 46-116 U/L B-Type Natriuretic Peptide 8.29 0-100 pg/mL Total Protein 6.4 5.7-8.2 g/dL Albumin 4.1 3.2-4.8 g/dL PROCEDURE(s): CXRP - CHEST PORTABLE REASON: SOB ORDER NUMBER(s): [id number], ACCESSION NUMBER(s): [id number] EXAM: XY CHEST PORTABLE HISTORY: SOB COMPARISON: XY CHEST PORTABLE on DOS: 01/25/25, XY CHEST PORTABLE on DOS: 01/15/25, XY CHEST PORTABLE on DOS: 12/08/22, CHEST PORTABLE on DOS: 04/25/20 TECHNIQUE: Portable AP view of the chest was performed. FINDINGS: There is increased central interstitial prominence. No consolidative infiltrates or pneumothorax. The heart is borderline enlarged. Spinal cord stimulator is re- identified. There is abundant overlying adipose tissue. IMPRESSION: 1. Increased central interstitial prominence may be due to reactive airways disease or CHF. 2. Obesity. Assessment/Plan Assessment/Plan # acute respiratory failure with hypoxemia # Possible pneumonitis, possible bronchitis # SOB to rule out pulmonary embolism # ?interstitial lung disease # ? Undiagnosed COPD * Admit to telemetry unit * O2 supplement * DuoNeb treatment * CT angio * Consider pulmonary consult # ?Heart failure * less likely with normal BNP and no clear cardiomegaly or pulmonary edema on imaging * Still possible, due to obesity with poorly controlled hypertension, ?CAD * Ordered echocardiogram # hypertension * Hydralazine as needed * Monitor * DASH diet # hyperglycemia # rule out diabetes type 2 * check A1c # morbid Obesity # obesity hypoventilation syndrome/HELDER * Morbid obesity significant risk factor for chronic hypoxia and respiratory symptoms, outpatient sleep study to rule out HELDER * Lifestyle modification counseled with diet, regular exercise, weight loss * check TSH,Lipid panel # chronic lower back pain, chronic hip pain * Pain control with oxycodone DVT prophylaxis Medical plan discussed with patient and RN Plan discussed with: Patient My Orders Orders - RODRIGUEZ ECKERT Procedure Category Date Status Time Ct Angio Chest CT 02/04/25 Logged Contrast 08:50 Hemoglobin A1c LAB 02/04/25 In Process 08:50 Thyroid Stimulating LAB 02/04/25 In Process Hormone 08:50 Lipid Panel LAB 02/04/25 In Process 08:50 Date of Service: Feb 04, 2025 Billing Provider: RODRIGUEZ ECKERT Common Visit Codes: 31319-[id number] INP/OBS CARE (HIGH) Consultation Codes: 93623-[id number] CONSULT <45MIN RODRIGUEZ ECKERT Feb 04, 2025 09:37
[2025-02-04 09:47] LABS: Triglycerides 662 mg/dL (< 150)
[2025-02-04 09:54] LABS: Cholesterol 210 mg/dL (< 200); HDL Cholesterol 27 mg/dL (40-59)
[2025-02-04 09:55] LABS: Base Excess -0.7 mmol/L (-2.0-3.0)
[2025-02-04 09:59] LABS: Urine Protein, UAD Negative (Negative)
--- NOTE | 2025-02-04 10:07 | DVH ---
CT CT ANGIO CHEST CONTRAST INDICATION: sob EXAM DATE: 02/04/2025 09:29 AM COMPARISON: None RADIATION DOSE: CTDIvol: 29 mGy, DLP: 1071 mGy*cm PROCEDURE: Helical CT angiographic images were obtained of the chest with intravenous contrast. Sagit cedric and coronal reconstructions as well as MIPS are provided. Maximum intensity projections performed (MIPs) were performed for CTA. ADDITIONAL IMAGES / REFORMATS: None All CT scans at this medical facility are performed using dose modulation techniques as appropriate t o a performed exam including the following: Automated exposure control was utilized; adjustment of th e MA and/or KV according to patient size; and use of iterative reconstruction technique. FINDINGS: Bones: Scattered degenerative changes are noted in the visualized osseous structures. There is a spi nal stimulator. Visualized Abdomen: Hepatic steatosis is visualized. Chest Wall: Normal. Soft tissues: Normal. Mediastinum: Normal. Heart: Normal. Vessels: No filling defects in the visualized pulmonary arteries including the segmental and subsegme ntal pulmonary arteries. Lymph Nodes: Normal. Pleura: Normal. Airways: Normal. Lung: Normal. Other: None IMPRESSION: No pulmonary embolism in the visualized pulmonary arteries including the segmental and subsegmental p ulmonary arteries.
[2025-02-04] MEDS: ENOXAPARIN SOD 40 MG/0.4 ML SYRINGE SC SCH (10:30)
[2025-02-04] MEDS: IPRATROPIUM BROM 0.5 MG/2.5ML INH SOL NEB SCH (11:07)
[2025-02-04] MEDS: ALBUTEROL SULF 2.5 MG/0.5ML(0.5%) NEB SOLN NEB SCH (11:07)
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
[2025-02-04] MEDS: OXYCODONE W/ ACETAMINOPHEN 5/325MG TABLET PO SCH (14:13)
[2025-02-05] VITALS (14 sets, daily range): BP systolic 104–138; BP diastolic 57–87; PULSE 101–116; RESP 16–20; TEMP 97.4–97.8; O2SAT 91–100
[2025-02-05 09:41] LABS: Hematocrit 46.2 % (41.0-53.0); Hemoglobin 15.6 g/dL (13.5-17.5); Mean Corpuscular Hemoglobin 28.1 pg (28.0-32.0); Mean Corpuscular Volume 83.3 fL (80.0-100.0)
[2025-02-05 09:51] LABS: Alkaline Phosphatase 93 U/L (46-116); Anion Gap 11 (5-15); BUN/Creatinine Ratio 14.0 (10.0-20.0); Blood Urea Nitrogen 15 mg/dL (9-23); Calcium 9.6 mg/dL (8.7-10.4); Carbon Dioxide 25 mmol/L (20-31); Potassium 4.3 mmol/L (3.5-5.1); Total Protein 6.6 g/dL (5.7-8.2)
[2025-02-05 09:52] LABS: Albumin 4.2 g/dL (3.2-4.8); Bilirubin, Total 0.4 mg/dL (0.2-1.0)
[2025-02-05 09:56] LABS: Alanine Aminotransferase 50 U/L (7-40); Chloride 98 mmol/L (98-107); Glucose 388 mg/dL (74-106); Sodium 134 mmol/L (136-145)
[2025-02-05 10:13] LABS: Total Cells Counted 100.0 (100)
[2025-02-05] MEDS: INSULIN LISPRO (HUMAN) 100 UNITS/ML ML SC SCH ×2 (11:30)
[2025-02-05] MEDS ORDERED: guaiFENesin-DM 100/10mg/5ml SYR PO PRN (11:30)
[2025-02-05 16:11] LABS: COVID19 ANTIGEN SOFIA FIA NEGATIVE (NEGATIVE)
--- NOTE | 2025-02-05 16:16 | DVH ---
Procedure: CT CHEST WITHOUT CONTRAST Reason for study/Clinical History: Rule out pulmonary fibrosis Comparison Study: CHEST WITHOUT CONTRAST on DOS: 04/25/20 TECHNIQUE: Multidetector CT of the chest was performed from the lung apices to the upper abdomen with out the use of intravenous contract. Axial, coronal and sagittal multiplanar reformats were performed . Radiation Dose Information: CT Dose: CTDI volume is 31.4 mGy. Dose-length product is 1092 mGy*cm The dose indicators for CT are the volume Computed Tomography (CT) Dose Index (CTDIvol) and the Dose Length Product (DLP), and are measured in units of mGy and mGy-cm, respectively. These indicators are not patient dose, but values generated from the CT scanner acquisition factors. The report includes radiation exposure data for exposures received during this examination. FINDINGS: Lower neck: Unremarkable. Lungs: No focal consolidation. No suspicious pulmonary nodule. Dependent subsegmental atelectasis. Heart/Vascular Structures: Normal heart size. No pericardial effusion. Vascular calcifications of the aorta. Lymph Nodes: No adenopathy Pleura: No pleural effusion or significant pneumothorax. Musculoskeletal: No acute osseous abnormality. Thoracic spinal stimulator device in-situ. Soft tissues: Normal. Upper abdomen: Hepatomegaly. Hepatic steatosis. IMPRESSION: No acute intrathoracic abnormality. Radiation optimization: All CT scans at this facility use at least one of these dose optimization maite hniques: automated exposure control mA and/or kV adjustment per patient size (includes targeted exam s where dose is matched to clinical indication) or iterative reconstruction.
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
[2025-02-05] MEDS: dilTIAZem 25 MG/5 ML VIAL IV ONE ×2 (19:32→19:44)
[2025-02-05] MEDS: INSULIN LANTUS (GLARGINE) 1 /0.01ml (100units/ml) SC SCH (19:41)
[2025-02-05] MEDS: ATORVASTATIN 20 MG TAB PO SCH (22:00)
[2025-02-05] MEDS: INSULIN LISPRO (HUMAN) 100 UNITS/ML ML SC ONE (23:13)
[2025-02-05] MEDS ORDERED: DEXTROSE (50%) 50ML SYRG IV PRN (23:30)
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
[2025-02-06] VITALS (14 sets, daily range): BP systolic 103–142; BP diastolic 60–94; PULSE 82–109; RESP 18–22; TEMP 97.3–98.1; O2SAT 93–99
[2025-02-06] MEDS: ACCU-CHEK COMFORT CURVE STRIP VI SCH
[2025-02-06] MEDS: InsuLIN REG 1unit/0.01ml Soln (100units/ml) SC SCH (00:45)
[2025-02-06] MEDS: INSULIN LISPRO (HUMAN) 100 UNITS/ML ML SC SCH (08:06)
[2025-02-06 09:14] LABS: Hematocrit 50.9 % (41.0-53.0); Hemoglobin 17.1 g/dL (13.5-17.5); Mean Corpuscular Hemoglobin 27.8 pg (28.0-32.0); Mean Corpuscular Volume 82.9 fL (80.0-100.0)
[2025-02-06 09:21] LABS: Anion Gap 10 (5-15); Carbon Dioxide 26 mmol/L (20-31); Chloride 101 mmol/L (98-107); Potassium 4.2 mmol/L (3.5-5.1); Sodium 137 mmol/L (136-145)
[2025-02-06 09:22] LABS: Calcium 9.5 mg/dL (8.7-10.4)
[2025-02-06 09:27] LABS: BUN/Creatinine Ratio 14.7 (10.0-20.0); Blood Urea Nitrogen 14 mg/dL (9-23)
[2025-02-06 09:28] LABS: Glucose 276 mg/dL (74-106)
[2025-02-06 09:48] LABS: Total Cells Counted 100.0 (100)
[2025-02-06] MEDS ORDERED: INSULIN LANTUS (GLARGINE) 1 /0.01ml (100units/ml) SC SCH (10:00)
[2025-02-06] MEDS: INSULIN LANTUS (GLARGINE) 1 /0.01ml (100units/ml) SC SCH (11:45)
[2025-02-06] MEDS: INSULIN LANTUS (GLARGINE) 1 /0.01ml (100units/ml) SC ONE (12:56)
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
[2025-02-06] MEDS ORDERED: LANC-347 XX (15:48)
[2025-02-06] MEDS ORDERED: INSU1INJ4 SC (15:48)
[2025-02-06] MEDS ORDERED: INSUINJ37 SC (15:48)
[2025-02-06] MEDS ORDERED: BLOO1KIT60 XX (15:48)
== END 2025-02-06 18:12 | disposition home or self-care (01) | DRG 189 ==
LOC: ER 05:01 → OVERFLOW 09:11 → TELE-CENTR 16:30
PROVIDERS: ADMIT Student in an Organized Health Care Education/Training Program; ATTEND Student in an Organized Health Care Education/Training Program
PROC: 5A09357 Assistance with Respiratory Ventilation, Less than 24 Consecutive Hours, Continuous Positive Airway Pressure (ICD-10-PCS; principal; 2025-02-06)
DX: J96.01 Acute respiratory failure with hypoxia (principal); E66.2 Morbid (severe) obesity with alveolar hypoventilation; Z68.42 Body mass index [BMI] 45.0-49.9, adult; I47.10 Supraventricular tachycardia, unspecified; G89.29 Other chronic pain; I25.10 Atherosclerotic heart disease of native coronary artery without angina pectoris; K21.9 Gastro-esophageal reflux disease without esophagitis; E11.65 Type 2 diabetes mellitus with hyperglycemia; I10 Essential (primary) hypertension; F41.9 Anxiety disorder, unspecified; Z79.2 Long term (current) use of antibiotics; Z87.442 Personal history of urinary calculi; Z79.899 Other long term (current) drug therapy
CPT/HCPCS: 36415; 36600; 71045; 71250; 71275; 80048; 80053; 80061; 81001; 82805; 82962; 83036; 83880; 84443; 84484; 85007; 85025; 85027; 87081; 87426; 87804; 93005; 93306; 94640; 94660; 96374; 96375; 99291; 99292; G0378; J1815; J2405